=== PATIENT | female | born 1955 | race Caucasian/White ===

== ENCOUNTER 2019-03-23 13:52 | Outpatient (REF) | payer BC, SELFPAY ==
[2019-03-23 19:42] LABS: HGB 14.7 g/dL (12.0-15.5); Mean Corp. HGB Concentration 34.2 g/dL (32.0-36.0); Mean Corpuscular Hemoglobin 33.2 pg (27.0-33.0); Mean Corpuscular Volume 97.1 fL (80-95); Mean Platelet Volume 11.1 fL (8.0-11.0); Platelet Count 111 x1000/uL (130-400); RBC 4.43 m/cumm (4.00-5.20); White Blood Cell Count 3.87 k/cumm (4.4-10.8)
[2019-03-25 10:55] LABS: Lyme Ab w Rflx to Lyme Confirm Negative
[2019-03-26 21:53] LABS: Anaplasma phagocytophilum Negative (Negative); B. miyamotoi PCR Negative (Negative); Babesia divergens/MO-1 Negative (Negative); Babesia duncani Negative (Negative); Babesia microti Negative (Negative); Ehrlichia chaffeensis Negative (Negative); Ehrlichia ewingii/canis Negative (Negative); Ehrlichia muris eauclairensis Negative (Negative)
== END 2019-03-23 14:12 ==
LOC: NCHCN 13:52
PROVIDERS: PCP Nurse Practitioner Adult Health; Visit Provider Family Medicine
DX: W57.XXXA Bitten or stung by nonvenomous insect and other nonvenomous arthropods, initial encounter (principal); T14.8XXA Other injury of unspecified body region, initial encounter
CPT/HCPCS: 85027; 87798; 86618

== ENCOUNTER 2019-04-06 07:41 | Outpatient (CLI) | payer BC, SELFPAY ==
--- NOTE | 2019-04-06 08:57 | DI.MAMMO_ITS ---
SYMPTOMS/DIAGNOSIS: SCREENING, [facility], Z00.00 MAMMOGRAMS: Mammograms were interpreted according to the usual protocol including computer analysis with CAD system, tomosynthesis and C view imaging. Comparison is with the prior examinations. No suspicious masses or microcalcifications are seen. There is no definite evidence of malignancy. IMPRESSION: Negative mammogram. Routine screening is recommended. Category 1, breast density B. SA ASSESSMENT OF FINDINGS: Negative. Category 1. Patient will receive a letter notifying them of these results. BI-RADS category B. There are scattered areas of fibroglandular density.
== END 2019-04-06 08:01 ==
PROVIDERS: PCP Family Medicine; Visit Provider Family Medicine
DX: Z00.00 Encounter for general adult medical examination without abnormal findings (principal); Z12.31 Encounter for screening mammogram for malignant neoplasm of breast
CPT/HCPCS: 77063; 77067

== ENCOUNTER 2019-04-20 12:10 | Outpatient (REF) | payer BC, SELFPAY ==
[2019-04-22 10:47] LABS: Lyme Ab w Rflx to Lyme Confirm Positive
[2019-04-25 16:20] LABS: IgG Band(s) p23 kDa; IgG Immunoblot Negative; IgM Immunoblot Positive; Immunoblot Interpretation SEE COMMENTS
== END 2019-04-20 12:30 ==
LOC: NCHCN 12:10
PROVIDERS: PCP Family Medicine; Visit Provider Family Medicine
DX: A69.20 Lyme disease, unspecified (principal)
CPT/HCPCS: 86617; 86618

== ENCOUNTER 2020-07-17 09:25 | Outpatient (REF) | payer BC, SELFPAY ==
[2020-07-17 18:39] LABS: HCT 42.1 % (36.0-46.0); HGB 14.4 g/dL (11.2-15.7); MCH 33.8 pg (27.0-33.0); MCHC 34.2 % (32.0-36.0); MCV 98.8 fL (80-95); MPV 11.5 fL (8.0-11.0); Platelet Count 147 10^3/uL (130-400); RBC 4.26 10^6/uL (3.93-5.22); RDW 11.9 % (11.7-14.6); RDW-SD 43.2 fL; WBC 3.24 10^3/uL (4.4-10.8)
[2020-07-17 19:07] LABS: ALT 22 U/L (14-59); AST 17 U/L (15-37); Albumin 3.5 g/dL (3.4-5.0); Alkaline Phosphatase 85 U/L (46-116); BUN 14 mg/dL (7-18); Bilirubin, Total 0.5 mg/dL (0.2-1.0); CREATININE 0.96 mg/dL (0.55-1.02); Calcium 8.6 mg/dL (8.5-10.1); Calculated LDL 170 mg/dL (<100); Chloride 106 mmol/L (98-107); Cholesterol 260 mg/dL (<200); Estimated GFR 58.33 (mL/min/1.73m2); Glucose 86 mg/dL (74-106); HDL Cholesterol 73 mg/dL (40-60); Potassium 3.7 mmol/L (3.5-5.1); Sodium 140 mmol/L (136-145); TSH (W/Ref FT4) 2.98 uIU/mL (0.36-3.74); Total Protein 6.9 g/dL (6.4-8.2); Triglyceride 87 mg/dL (<150)
== END 2020-07-17 09:45 ==
LOC: NCHCN 09:25
PROVIDERS: PCP Family Medicine; Visit Provider Family Medicine
DX: E66.9 Obesity, unspecified (principal); E78.5 Hyperlipidemia, unspecified; R60.0 Localized edema; R63.5 Abnormal weight gain
CPT/HCPCS: 80053; 80061; 85027; 84443

== ENCOUNTER 2020-08-07 01:33 | Outpatient (CLI) | payer BC, SELFPAY ==
--- NOTE | 2020-08-07 | DI.US_ITS ---
APPROVED REPORT EXAM: Comprehensive 2D, Doppler, and color-flow Echocardiogram Patient Location: Out-Patient Physical Therapy Manager: Violet Darling RDCS (AE) Indications: Bilateral leg edema Other Information Study Quality: Adequate Conclusion Normal left ventricular wall thickness chamber size and systolic function. Estimated ejection fracti on is 65%. There are no segmental wall motion abnormalities Normal right ventricular size and systolic function Both atria are normal in size There are no structural valvular abnormalities Trace mitral regurgitation Trace to mild tricuspid regurgitation. Estimated right ventricular systolic pressure is normal at 21 mmHg Wall motion Left Ventricle The left ventricle is normal size. The left ventricular systolic function is normal. The left ventric ular ejection fraction is within the normal range. There is normal left ventricular wall thickness. T here is normal LV segmental wall motion. There is no ventricular septal defect visualized. LVEF is 65 %. Right Ventricle The right ventricle is normal size. The right ventricular systolic function is normal. The RVSP is 21 .3 mmHg. Atria The left atrium size is normal. The right atrium size is normal. The interatrial septum is intact wit h no evidence for an atrial septal defect. Aortic Valve The Aortic valve is sclerotic. Aortic valve is trileaflet. There is no aortic valvular stenosis. No a ortic regurgitation is present. Mitral Valve The mitral valve is normal in structure. No evidence of mitral valve stenosis. Trace mitral regurgita tion. Tricuspid Valve The tricuspid valve is normal in structure. There is no tricuspid valve stenosis. Trace to mild tricu spid regurgitation. Pulmonic Valve Pulmonic valve is not well visualized. There is no pulmonic valvular stenosis. There is no pulmonic v alvular regurgitation. Great Vessels The aortic root is normal in size. The ascending aorta is normal in size. Aortic arch is normal in ca liber. IVC is normal in size and collapses >50% with inspiration. Pericardium There is no pericardial effusion. 2D Dimensions IVSD d PLAX 0.92 cm F: 0.6-1.0 LV Vol A2C d MOD 65.8 mL LVPW d PLAX 0.93 cm F: 0.6 - 1.0 LV Vol A4C d MOD 89.9 mL LVID d PLAX 4.11 cm F: 3.8 - 5.2 LA vol/ BSA A2C s A-L 20.2 mL/m2 LVDs 2.85 cm F: 2.2 - 3.5 LA vol/ BSA A4C s A-L 26.9 mL/m2 Ao Root d 2.44 cm F: 2.7 - 3.3 LA Vol/ BSA Biplane s A-L 25.1 mL/m2 RA Area A4C 10.96 cm2 LA Area A4C s MOD 21.31 cm2 RA Vol/ BSA A4C s A-L 8.9 mL/m2 LA Area A2C s MOD 17.17 cm2 Ao Asc Diam d 3.14 cm F: 2.3 - 3.1 LV EF A4C MOD 67.3 % LV EF Teichholz 57.2 % LV EF A2C MOD 64.9 % LVEF ([employer]) 64.90 % F: 54 - 74 LV EF Biplane MOD 64.9 % LV Volume 55.26 mL F: 46 - 106 SV 50.09 mL LV Volume Index 23.92 mL/m2 F: 29 - 61 SV Index 21.64 mL/m2 LV Vol Biplane MOD 77.2 mL FS 29.65 % M-Mode TAPSE 3.32 cm (M/F) >1.7 LV Diastology MV E' medial 0.075 (>0.07 m/s) E/A Ratio 0.9 LV E/e MED 10.75 (<14) MV E Vmax 0.80 (0.4-1.3 m/s) MV E' lateral 0.101 (>0.1 m/s) MV A Vmax 0.85 (0.4-1.3 m/s) LV E/e LAT 7.90 (<14) MV E/A Ratio 0.90 MV E/E' medial 10.79 MV E/E' lateral 7.93 Aortic Valve LVOT Area 2.85 cm2 AoV Area Vmax 2.10 cm2 LVOT Vmax 1.30 m/s AoV Area/ BSA (Vmax) 0.91 cm2/m2 LVOT Mean Elías. 0.84 m/s KRISTAL Mean Elías. 2.03 cm2 LVOT Peak Grad 6.8 mmHg KRISTAL Mean Elías. Index 0.87 cm2/m2 LVOT Mean Grad 3.4 mmHg LVOT VTI 0.294 m LVOT Diam s 1.90 cm AoV Vmax 1.77 m/s Velocity Ratio 0.73 AoV Mean Elías. 1.18 m/s AoV Peak Grad 12.5 mmHg LVOT SV 83.81 mL AoV Mean Grad 6.4 mmHg AoV VTI 0.333 m AoV Area VTI 2.52 cm2 AoV Area/ BSA (VTI) 1.09 cm/m2 Mitral Valve MV DT 222 (160-240 msec) MV PHT 64 msec MV Area PHT 3.41 cm2 Pulmonary Valve PV Vmax 1.43 (0.5-1.5 m/s) RVOT Peak Gr. 3.77 mmHg PV Peak Grad 8.2 mmHg RVOT Mean Gr. 1.75 mmHg PV Mean Grad 4.4 mmHg RVOT VTI 0.203 m PV VTI 0.249 m RVOT Vmax 0.97 m/s Tricuspid Valve TR Peak Grad 18.2 mmHg TR Vmax 2.14 m/s RA Pressure 3.00 mmHg RVSP (TR) 21.3 mmHg
== END 2020-08-07 01:53 ==
PROVIDERS: PCP Family Medicine; Visit Provider Family Medicine
DX: I07.1 Rheumatic tricuspid insufficiency (principal)
CPT/HCPCS: 93306

== ENCOUNTER 2020-08-10 09:40 | Outpatient (REF) | payer BC, SELFPAY ==
[2020-08-10 18:45] LABS: Anion Gap 10.3 mmol/L (3-11); BUN 13 mg/dL (7-18); CO2 23.7 mmol/L (21.0-32.0); CREATININE 0.97 mg/dL (0.55-1.02); Calcium 8.7 mg/dL (8.5-10.1); Chloride 107 mmol/L (98-107); Estimated GFR 57.64 (mL/min/1.73m2); Folate 15.7 ng/mL (8.6-20.0); Glucose 106 mg/dL (74-106); Potassium 3.5 mmol/L (3.5-5.1); Sodium 141 mmol/L (136-145); Vitamin B12 236 pg/mL (193-986)
== END 2020-08-10 10:00 ==
LOC: NCHCN 09:40
PROVIDERS: PCP Family Medicine
DX: D75.89 Other specified diseases of blood and blood-forming organs (principal)
CPT/HCPCS: 80048; 82607; 82746

== ENCOUNTER 2020-08-14 01:01 | Outpatient (CLI) | payer BC, SELFPAY ==
--- NOTE | 2020-08-14 | DI.DEXA_ITS ---
EXAM: XR DEXA BONE DENSITY W/WO STEVIE CLINICAL HISTORY: SCREENING FOR OSTEOPOROSIS IN POSTMENOPAUSAL WOMAN,Z78.0,PREVENT HEAL,Z00.0 TECHNIQUE: [employer] ([place]) Co C densitometer COMPARISON: No exams were available for comparison FINDINGS: Lateral view of thoracic and lumbar spine shows no evidence of compression fractures. Bone mineral density measurements of the lumbar spine correspond to a total T-score of -1.8, in the o steopenic range. The bone mineral density measurements of the left hip correspond to a total T-score of -0.9 and a femoral neck T-score of -1.6, in the osteopenic range. Bone mineral density measureme nts of the left forearm correspond to a T-score of the distal 3rd of -1.5, in the osteopenic range. IMPRESSION: Osteopenia of the lumbar spine, left hip and left forearm.
== END 2020-08-14 01:21 ==
PROVIDERS: PCP Family Medicine; Visit Provider Family Medicine
DX: M85.88 Other specified disorders of bone density and structure, other site (principal); Z00.00 Encounter for general adult medical examination without abnormal findings; Z78.0 Asymptomatic menopausal state
CPT/HCPCS: 77080

== ENCOUNTER 2021-11-01 15:29 | Outpatient (REF) | payer BC, MEDICARE, SELFPAY ==
--- NOTE | 2021-11-01 15:32 | SKI_PTH ---
PATIENT: Christina Ramos LOC: [facility] U#:[id number] AGE/SX: 65/F ROOM: RE11/01/[address]: GRETTA Skelton : 1955 BED: DIS: 11/01/2021 SPEC #: [id number] RECD: 11/01/21 18:21 STATUS: BRIAN REPreston #: [id number] CODIE: 11/01/21 15:[address]: Alphonse Martinez DEPT: Surgical Specimen RECD BY: Shante Coleman ENTERED: 11/01/21 18:21 SP TYPE: RICARDO BRAND DR: Yana Vaughan Tissues: 1 - SKIN BIOPSY(SHAVE/PUNCH) Procedures: SKIN LEVEL 4 Comments: [id number]
== END 2021-11-01 15:30 | disposition home or self-care (01) ==
LOC: LBN 15:29
PROVIDERS: PCP Family Medicine; Visit Provider Physician Assistant
DX: L82.0 Inflamed seborrheic keratosis (principal)
CPT/HCPCS: 88305

== ENCOUNTER 2021-11-25 00:33 | Outpatient (CLI) | payer BC, MEDICARE, SELFPAY ==
--- NOTE | 2021-11-25 | DI.MAMMO_ITS ---
Exam(s) MAMMO SCREENING EXAM: MAMMO SCREENING CLINICAL HISTORY: SCREENING, Z12.31 TECHNIQUE: Mammograms were interpreted according to the usual protocol including computer analysis w [employer] CAD system, tomosynthesis and C-view imaging. COMPARISON: 2019 FINDINGS: The breasts are composed of scattered fibroglandular densities, Breast Density category B. No suspicious masses or suspicious microcalcifications are seen. No skin thickening or abnormal axillary lymph nodes are seen. There has been no significant change from prior exam. IMPRESSION: BI-RADS Category 1, Negative mammogram Yearly screening mammography is recommended. Breast Density - Category B, scattered fibroglandular densities. A negative radiographic report should not delay biopsy if a dominant or clinically suspicious mass is present. Up to ten percent of cancers are not identified on mammography. A negative report may reinforce clinical impression. Adenosis and dense breasts may obscure an underlying neoplasm. False positive reports average 6 to 10%. Patient will receive a letter notifying them of these results.
== END 2021-11-25 00:53 ==
PROVIDERS: PCP Family Medicine; Visit Provider Family Medicine
DX: Z12.31 Encounter for screening mammogram for malignant neoplasm of breast (principal)
CPT/HCPCS: 77063; 77067

== ENCOUNTER 2022-01-06 04:27 | Outpatient (CLI) | payer BC, MEDICARE, SELFPAY ==
[2022-01-06 11:41] LABS: Source Nasal/Nares
[2022-01-06 16:42] LABS: COVID-19 PCR Negative (Negative)
== END 2022-01-06 04:28 | disposition home or self-care (01) ==
LOC: LBO 04:30
PROVIDERS: PCP Family Medicine; Visit Provider Surgery
DX: Z20.822 Contact with and (suspected) exposure to COVID-19 (principal); Z01.818 Encounter for other preprocedural examination
CPT/HCPCS: 87635

== ENCOUNTER 2022-01-08 10:26 | Day surgery (SDC) | payer BC, SELFPAY ==
--- NOTE | 2022-01-08 06:59 | W.COLOREPORT ---
Colonoscopy Report Date of procedure: 01/08/22 Pre-op diagnosis general: Colon Cancer Screening Post-op diagnosis procedure note: other (polyps and mild diverticulosis) Procedure: Colonoscopy with polypectomy Surgeon: Sara Webb Anesthesia Type: General:No Airway Estimated blood loss (mL): 2 Pathology: other (transverse polyp and descending polyp) Complications: None Disposition: same day Indications: The patient is here for Colonoscopy pre-op. Her last screening was in 2007 and was remarkable for tubular adenomatous polyp. She has no family history of colon cancer. She has not had any bowel habit changes. -Discussed colonoscopy bowel prep as well as the procedure. Discussed possible complications of the procedure to include bleeding, pain, perforation, missed small lesion/polyp, sore throat, aspiration and adverse reaction to the medications. Questions were answered to patient?s satisfaction. No guarantees were implied or given.? Prep: Miralax/Dulcolax Procedure Start Time: 13:00 Procedure End Time: 13:19 Retraction Time: 11 minutes Findings: 2 small sessile polyps mild sigmoid diverticulosis Procedure Description: After informed consent was obtained the patient was taken to the procedure room and placed in a left decubitous position. Monitors were applied and a time out was done. The patients name, date of , procedure, allergies to medications and metal in their body was reviewed. The patient was then sedated. Once sedated and comfortable a rectal exam was done. External exam was normal. Internal exam revealed a normal sphincter tone and no palpable masses. The scope was then introduced and retro-flexed. No internal hemorrhoids, polyps or masses were identified on retro-flexion. The scope was then advanced to the cecum without difficulty. The ileocecal vlave and appendiceal orifice were identified. The prep was good. The scope was then slowly retracted over 11 minutes back into the rectum. Polyps were removed with cold forceps in the transverse colon x1 and descending colon x1. There was mild sigmoid diverticulosis noted. The scope was removed and the patient was woken up and taken back to Same day surgery in stable condition. The patient tolerated the procedure well and there were no immediate complications. Follow up: The patient should follow up in 5 years unless they develop changes in bowel habits or other new gastrointestinal complaints.
--- NOTE | 2022-01-08 07:02 | W.PM.DSUDISC ---
Discharge Plan Disposition Patient Disposition: HOME Condition: Good Discharge Details Reason For Visit: Colonoscopy Attending Provider: Sara Webb Primary Care Provider: Yana Vaughan Home Meds and New Rx's Prescriptions: Continued Vitamin B-12 50 mcg tablet 50 mcg PO DAILY 0RF pantoprazole 40 mg tablet,delayed release (DR/EC) 40 mg PO DAILY 0RF calcium carbonate-vitamin D3 [Calcium with Vitamin D] 600 mg(1,500mg) -400 unit tablet 1 tab PO DAILY 0RF dextran 70-hypromellose Drops 1 drp OPHTHALMIC (EYE) QHS 0RF Discharge Instructions Instructions: Diverticulosis (DC), Colorectal Polyps (DC) Additional Instructions: Findings: 2 polyps mild diverticulosis Follow up: 5 years Please call if you develop: fevers >101.5 Nausea or Vomiting Abdominal pain that is not transient Rectal bleeding that is more then a tbsp A hard abdomen and inability to pass gas DAY SURGERY UNIT POST ENDOSCOPY INSTRUCTIONS Instructions for everyone who is given Anesthesia: For your safety, please do the following for the next 24 Hours: a. Do not drive or operate dangerous equipment b. Do not drink alcohol beverages or use any recreational drugs for the first 24 hours or while taking pain medications. The medications in your body may have a reaction that can be dangerous. c. Do not make any important decisions or sign any important papers 1. Generally there are no restrictions on your activity after a day or so has gone by, but you may feel a bit fatigued for a few days. 2. After you arrive home you may have a light meal and return to a normal diet as you can tolerate it without feeling sick to your stomach. 3. After surgery, you may feel pain or discomfort. This should be only transient, but if it persists please contact your doctor. 4. If there are any questions regarding the findings of your procedure, please feel free to contact your doctor. 6. If you are unable to contact your doctor with a problem, contact the hospital at [phone]. 7. Continue all your regular medications unless directed otherwise. I understand the above instructions and have no questions. Signature of Patient or Responsible Adult Escort Date/Time Name of Responsible Adult Escort Signature of Nurse Date/Time Activity:: Activity as Tolerated Diet:: high fiber Discharge Orders Discharge Orders: Discharge Order (Routine); Ordered 01/08/22 Ordered By: Sara Webb
[2022-01-08 10:39] VITALS: BP 149/66; PULSE 72; RESP 16; TEMP 36.3; O2SAT 98
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
[2022-01-08 10:53] VITALS: BMI 44.4
[2022-01-08] MEDS: Lactated Ringers 1,000 ML 80 ML IV (11:14)
--- NOTE | 2022-01-08 13:10 | BOWEL_PTH ---
PATIENT: Christina Ramos LOC: [facility] U#:[id number] AGE/SX: 66/F ROOM: RE01/08/[address]: Sara Webb MD : 1955 BED: DIS: 01/08/2022 SPEC #: [id number] RECD: 01/08/22 18:00 STATUS: BRIAN REPreston #: [id number] CODIE: 01/08/22 13:[address]: Sara Webb DEPT: Surgical Specimen RECD BY: Shante Coleman ENTERED: 01/08/22 18:01 SP TYPE: Bowel OTHR DR: Yana Vaughan Tissues: 1 - BIOPSY BOWEL 2 - BIOPSY BOWEL Procedures: GROSS AND MICRO LEVEL 4 Comments: [id number]
[2022-01-08 13:25] VITALS: BP 106/64; PULSE 52; RESP 18; TEMP 36.1; O2SAT 94
[2022-01-08 13:54] VITALS: BP 120/69; PULSE 61; RESP 16; TEMP 36.5; O2SAT 99
--- NOTE | 2022-01-08 14:20 | W.ANESPOSTOP ---
Postoperative Evaluation Date, Time and Location Date Performed: 01/08/22 Time Performed: 13:27 Patient Location: Day Surgery Unit Vital Signs Most Recent Imported Vital Signs: Most Recent Vital Signs Temp Pulse Resp BP Pulse Ox 36.5 C 61 16 120/69 99 01/08/22 13:54 01/08/22 13:54 01/08/22 13:54 01/08/22 13:54 01/08/22 13:54 Pain Score Most Recent Pain Score: Most Recent Pain Score Pain Level 0 01/08/22 13:54 Assessment Mental Status: Awake (Alert & Oriented to Patient Baseline) Airway and Respiratory Function: Patent airway with normal (patient baseline) respiratory exam Cardiovascular Function: Hemodynamically Stable Hydration Status: Adequately Hydrated Nausea & Vomiting: No Nausea or Vomiting Pain: Pt. Denies Any Pain Peripheral Nerve Block: Patient did not receive a nerve block
== END 2022-01-08 14:31 | disposition home or self-care (01) ==
PROVIDERS: PCP Family Medicine; Visit Provider Surgery
PROC: 0DJD8ZZ Inspection of Lower Intestinal Tract, Via Natural or Artificial Opening Endoscopic (ICD-10-PCS; CPT 45378; principal; 2022-01-08 13:15)
DX: Z12.11 Encounter for screening for malignant neoplasm of colon (principal); K57.30 Diverticulosis of large intestine without perforation or abscess without bleeding; K63.5 Polyp of colon
CPT/HCPCS: 45380; 88305

== ENCOUNTER 2022-04-15 15:00 | Outpatient (REF) | payer BC, SELFPAY ==
[2022-04-15 16:35] LABS: HCT 41.4 % (36.0-46.0); HGB 14.4 g/dL (11.2-15.7); MCH 33.3 pg (27.0-33.0); MCHC 34.8 % (32.0-36.0); MCV 96 fL (80-95); MPV 11.4 fL (8.0-11.0); Platelet Count 136 10^3/uL (130-400); RBC 4.33 10^6/uL (3.93-5.22); RDW 11.9 % (11.7-14.6); RDW-SD 41.1 fL; WBC 3.46 10^3/uL (4.4-10.8)
[2022-04-15 17:41] LABS: Anion Gap 10.8 mmol/L (3-11); BUN 17 mg/dL (7-18); CO2 23.2 mmol/L (21.0-32.0); CREATININE 1.1 mg/dL (0.55-1.02); Calcium 8.9 mg/dL (8.5-10.1); Chloride 107 mmol/L (98-107); Estimated GFR 49.54 (mL/min/1.73m2); Glucose 91 mg/dL (74-106); Sodium 141 mmol/L (136-145); Vitamin B12 558 pg/mL (193-986)
== END 2022-04-15 15:01 | disposition home or self-care (01) ==
LOC: NCHCN 15:00
PROVIDERS: PCP Family Medicine; Visit Provider Family Medicine
DX: E53.8 Deficiency of other specified B group vitamins (principal); D75.89 Other specified diseases of blood and blood-forming organs; R60.0 Localized edema
CPT/HCPCS: 80048; 85027; 82607

== ENCOUNTER 2022-10-20 18:45 | Outpatient (REF) | payer BC, SELFPAY ==
[2022-10-20 18:39] LABS: Anion Gap 9.4 mmol/L (3-11); BUN 12 mg/dL (7-18); CO2 23.6 mmol/L (21.0-32.0); CREATININE 0.9 mg/dL (0.55-1.02); Chloride 106 mmol/L (98-107); Estimated GFR 70.07 (mL/min/1.73m2); Glucose 94 mg/dL (74-106); Potassium 3.8 mmol/L (3.5-5.1); Sodium 139 mmol/L (136-145)
[2022-10-22 10:29] LABS: Hepatitis C Ab w Rflx HCV PCR Negative (Negative)
== END 2022-10-20 18:46 | disposition home or self-care (01) ==
LOC: NCHCN 18:45
PROVIDERS: PCP Family Medicine; Visit Provider Family Medicine
DX: N18.31 Chronic kidney disease, stage 3a (principal); Z11.59 Encounter for screening for other viral diseases
CPT/HCPCS: 80048; 86803

== ENCOUNTER 2023-01-24 11:09 | Outpatient (CLI) | payer BC, SELFPAY ==
--- NOTE | 2023-01-24 | DI.RAD_ITS ---
Exam(s) XR RIBS RT W PA LAT CHEST CLINICAL HISTORY: Rib pain/Right side. COMPARISON: CR CHEST 2 VIEWS PA,LAT from 06/26/2010 TECHNIQUE:: PA and lateral views of the chest and four views of the right ribs were performed. FINDINGS: LUNGS: Patchy infiltrate at the right diaphragm. tiny effusion. No pneumothorax. HEART: Normal. MEDIASTINUM: Normal. BONES: No displaced rib fracture is seen. No bony destructive lesion is seen. OTHER FINDINGS: None. IMPRESSION: 1. Unremarkable radiographic appearance of the right ribs. 2. Tiny right pleural effusion and right basilar infiltrate.
--- NOTE | 2023-01-24 11:56 | DI.VRAD_ITS ---
PROCEDURE INFORMATION: Exam: XR Right Ribs Exam date and time: 01/24/2023 11:19 AM Age: 67 years old Clinical indication: Other: Right lower anterior rib pain; Other: Lower rib pain.No history of trauma or recent surgery is provided. TECHNIQUE: Imaging protocol: Radiologic exam of the right ribs. Views: 2 views. COMPARISON: No relevant prior studies available. FINDINGS: Bones/joints: Osseous alignment is maintained.No displaced fracture or dislocation is appreciated. Soft tissues: No radiopaque foreign body or subcutaneous emphysema is appreciated. IMPRESSION: Osseous alignment is maintained.No fracture or dislocation is appreciated. PROCEDURE INFORMATION: Exam: XR Chest Exam date and time: 01/24/2023 11:19 AM Age: 67 years old Clinical indication: Other: Right lower anterior rib pain; Other: Lower rib pain.No history of trauma or recent surgery is provided. TECHNIQUE: Imaging protocol: Radiologic exam of the chest. 5image(s) are provided. Views: 2 views. COMPARISON: No relevant prior studies available. FINDINGS: Lungs: No lobar consolidation is appreciated. There is however some patchy opacification of the right lung base. Pleural spaces: There is some costophrenic angle blunting on the right. No pneumothorax is appreciated. Heart/Mediastinum: The cardiomediastinal silhouette is upper normal in size.This can be seen with central averaging as well as kylie enlargement.No cardiac decompensation is appreciated. Diaphragm: The hemidiaphragms are otherwise relatively symmetric. Bones/joints: Osseous alignment is maintained.No displaced fracture or dislocation is appreciated. Soft tissues: No radiopaque foreign body or subcutaneous emphysema is appreciated. There is some skin fold averaging. Other findings: There is some mild chronic air trapping appearance overall demonstrated. IMPRESSION: There is some patchy opacification indicative of inflammation or scarring at the right lung base along with some pleural fluid blunting the costophrenic angle. No lobar type consolidation or cardiac decompensation is appreciated. Dictated and Authenticated by: Jacques Schroeder MD. Ordering:YANET López MD
== END 2023-01-24 11:29 ==
PROVIDERS: PCP Family Medicine; Visit Provider Physician Assistant Medical
DX: R91.8 Other nonspecific abnormal finding of lung field (principal); R10.9 Unspecified abdominal pain
CPT/HCPCS: 71046; 71100

== ENCOUNTER 2023-01-26 16:23 | Outpatient (REF) | payer BC, SELFPAY ==
[2023-01-28 13:30] LABS: HSV 1 DNA Result Negative (Negative); HSV 2 DNA Result Negative (Negative); Varicella Zoster DNA Result Negative ((See Note))
== END 2023-01-26 16:24 | disposition home or self-care (01) ==
LOC: NCHCN 16:23
PROVIDERS: PCP Family Medicine; Visit Provider Family Medicine
DX: R21 Rash and other nonspecific skin eruption (principal); Z11.59 Encounter for screening for other viral diseases
CPT/HCPCS: 87529; 87798

== ENCOUNTER 2024-05-02 03:54 | Outpatient (CLI) | payer BC, SELFPAY ==
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
--- OUTSIDE RECORDS SUMMARY | 2024-05-02 03:56 | XMS_ITS | Encounter Summary ---
Author Organization Count Includes [facility] Address [facility] [place] [address] Care Team Providers Care Equities Trader Name Role Phone Tish Malcolm APRN Primary Care Provider +1- [phone] Encounter Details Date Type Department Care Team (Latest Contact Info) Description 11/06/2010 8:52 AM EST - 11/08/2010 11:22 AM [facility] Hospital Encounter [address] [place] [address] Tor Pina MD [facility] [place] [place] [address] Discharge Disposition: Home Social History Tobacco Use Types Packs/Day Years Used Date Smoking Tobacco: Never Assessed Sex and Gender Information Value Date Recorded Sex Assigned at Not on file Gender Identity Not on file Sexual Orientation Not on file documented as of this encounter Last Filed Vital Signs Vital Sign Reading Time Taken Comments Blood Pressure - - Pulse - - Temperature - - Respiratory Rate - - Oxygen Saturation - - Inhaled Oxygen Concentration - - Weight 103.4 kg (228 lb) 07/09/2010 1:31 PM EDT Height 170.2 cm (5' 7) 07/09/2010 1:31 PM EDT Body Mass Index 35.71 07/09/2010 1:31 PM EDT documented in this encounter Plan of Treatment Not on file documented as of this encounter Visit Diagnoses Not on filedocumented in this encounter Active and Recently Administered Medications Care Teams Equities Trader Relationship Specialty Start Date End Date Tish Malcolm APRN PCP - General 08/06/10 05/11/11 documented as of this encounter
--- OUTSIDE RECORDS SUMMARY | 2024-05-02 03:56 | XMS_ITS | Encounter Summary ---
Author Organization [facility] [place] [address] Care Team Providers Care Metal Polisher And Buffer Apprentice Name Role Phone MalcolmTish griffith Timothy CASTELLON Primary Care Provider +1- [phone] Reason for Visit * Reason Comments Follow Up Surgery right eye Encounter Details Date Type Department Care Team (Late st Contact Info) Description 08/01/2011 9:45 AM EST [place] [address] Tor Pina MD [facility] [place] [address] Facial trauma (Primary Dx) Discharge Disposition: Home Social History Tobacco Use [...] - Inhaled Oxygen Concentration - - Weight 84.8 kg (187 lb) 08/01/2011 9:37 AM EST Height - - Body Mass Index 28.43 07/08/2011 3:10 PM EDT documented in this encounter Patient Instructions * Patient Instructions* Milly Cole CMA - 08/01/2011 9:53 AM EST Welcome to Little1, your secure online access to your electronic medical record at [facility]. Using Little1 you will be able to send messages to your providers, view your test results, renew prescriptions, schedule appointments, and much more. Follow these instructions to enter your personal [facility] account for the first time: 1. Start your internet browser. Go to [email or web address] and click on the Little1 link. 2. Click SIGN UP NOW to go to the NEW MEMBER SIGN UP page. 3. Enter your Little1 Access Code exactly as it appears below. (You will not need this access code after you have completed the sign-up process.) ?? Your [facility] Access Code: [email or web address] ?? Expires: 08/22/11 02:24 PM ?? IMPORTANT: This Access Code will on the above mentioned date. If you do not sign up before this date, you will need to request a new Access Code number. 4. Enter your Date of (mm/dd/yyyy) and zip code click SUBMIT to go to the next page. 5. Create a [facility] identification (ID). This will be your Little1 login ID and cannot be changed, so think of one that is secure and easy to remember. 6. Create a password which you can change at any time. Your password must contain six (6) letters and two (2) numbers. 7. Enter your Password Reset Question and Answer. This will be used if you forget your password. 8. Enter your e-mail address. This is used to let you know when new information is available in Little1. 9. Click SIGN UP to complete the process. You can now view your electronic medical record. If you have any questions about Little1 or your Access Code, please call for [place], for [place] or for [place]. If you need technical support, please e-mail [email or web address]. Remember, myD-H is NOT for urgent needs! Always dial 911 for medical emergencies. documented in this encounter Progress Notes * Tor Pina MD - 08/01/2011 10:03 AM EST 30 d s/p right periorbital procedures Doing well in general Still has loss of supratarsal crease on right upper lid and significant residual edema Is doing some lower lid massage and I have encouraged her to continue with this Will try some lid taping at night to try and mitigate some dry eye symptoms Does have some persistent lower lid retraction and she might benefit from an inner lamella graft such as palatal mucosa in the future I expect that the upper and lower lids will look better in the coming 1-2 months and we will look at things again in September 2011. She also mentioned that she is having quite a bit of tearing and she might require an Ophthalmologyconsultation if this persists. Photos obtained with informed signed consent. More than 50% of the time of this visit was spent in counseling and coordinating care (25 mins) documented in this encounter Miscellaneous Notes * Miscellaneous - Nita Lopez - 08/11/2011 2:45 PM EST documented in this encounter Plan of Treatment Not on file documented as of this encounter Visit Diagnoses Diagnosis Facial trauma- Primary Injury of face and neck documented in this encounter Care Teams Metal Polisher And Buffer Apprentice Relationship Specialty Start Date End Date Tish Malcolm APRN PCP - General 07/08/11 11/09/16 documented as of this encounter
--- OUTSIDE RECORDS SUMMARY | 2024-05-02 03:56 | XMS_ITS | Encounter Summary ---
Author Organization [facility] Address [facility] [place] [address] Care Team Providers Care Instrument Room Technician Name Role Phone Tish Malcolm RAVINDER Primary Care Provider [phone]- [phone] Reason for Visit * Reason Comments Follow-up ct scan Advice Only right eye lid Encounter Details Date Type Department Care Team (Late st Contact Info) Description 04/04/2011 8:00 AM EDT [place] [id number] Tor Pina MD [facility] [place] [address] Facial trauma (Primary Dx) Discharge Disposition: Home [...] Sign Reading Time Taken Comments Blood Pressure 118/54 04/04/2011 7:59 AM EDT Pulse - - Temperature - - Respiratory Rate - - Oxygen Saturation - - Inhaled Oxygen Concentration - - Weight 87.1 kg (192 lb) 04/04/2011 7:59 AM EDT Height 172.7 cm (5' 8) 04/04/2011 7:59 AM EDT Body Mass Index 29.19 04/04/2011 7:59 AM EDT documented in this encounter Progress Notes * Tor Pina MD - 04/04/2011 8:33 AM EDT Ms. Ramos for reevaluation today. She is now 5 months status post refracture and reposition of the right zygomaticomaxillary complex and right nasal maxillary complex. She's doing very well. She is extremely pleased with the improved position of her right globe. She is much more comfortable exposing her face in public now without the use of large sunglasses. However she still has some significantsoft tissue deformity that will require further reconstruction. She also has some palpable hardwareand orbital rim irregularity that is bothersome to her. In particular the right zygomaticofrontal titanium plate and the right inferior orbital rim titanium plate both are palpable and uncomfortable for her. In looking at her she's in no distress and her overall health appears to be excellent. Her right lower lid is markedly displaced in a caudad direction with both the lateral and medial canthal ligament region malpositioned. In addition her right upper lid appears to be ptotic in the nasal half so that the nasal half of her upper lid obscures her cornea. Her pupil is veiled when looking in the AP direction. I have recommended the following interventions: 1. Right upper lid levator advancement to elevate the nasal half of the right upper lid 2. Medial canthoplasty via old scar in canthal region 3. Lateral canthoplasty 4. Possible removal of rim plate and bony contouring of inferior orbital rim 5. Left lower lid skin-only bleph for symmetry 6. Possible removal of right ZF plate Photographs were obtained today with informed signed consent. I reviewed the risks of the above listed procedures including bleeding, scarring, infection, healing problems, corneal abrasion, persistent deformity, lagophthalmos, and need for further surgery in the future. More than 50% of the time of this visit was spent in counseling and coordinating care (25 mins) documented in this encounter Miscellaneous Notes * Miscellaneous - Nita Lopez - 04/10/2011 11:24 AM EDT documented in this encounter Plan of Treatment Not on file documented as of this encounter Visit Diagnoses Diagnosis Facial trauma- Primary Injury of face and neck documented in this encounter Care Teams Instrument Room Technician Relationship Specialty Start Date End Date Tish Malcolm APRN PCP - General 08/06/10 05/11/11 documented as of this encounter
--- OUTSIDE RECORDS SUMMARY | 2024-05-02 03:56 | XMS_ITS | Encounter Summary ---
Author Organization [facility] [place] [address] Care Team Providers Care Overlock Operator Name Role Phone Unknown Primary Care Provider Unavailabl e Encounter Details Date Type Department Care Team (Late st Contact Info) Description 07/02/2011 12:29 PM EDT Anesthesia [place] [address] Jesus Patino MD [facility] [place] [address] Anesthesia Record Procedure Summary Procedure Name Responsible Anesthesiologist Anesthesia Start Time Anesthesia Stop Time CANTHOPLASTY (WRVU 5.99) (Right: Eye) Jesus Patino MD 07/02/11 1229 07/02/11 1537 Events Date Time Event Comment 07/02/2011 1157 1229 Start 1537 Stop Meds * Agents No agents on file. * Blood No blood administrations on file. Lines, Drains, and Airways Type Details Placement Removal (RETIRED) Peripheral IV Line - Single Lumen 07/02/11; 1224; 07/02/11; 1707 07/02/11 1224 by Sweetie Vyas RN 07/02/11 1707 by Kaleigh Drew RN Incision 07/02/11; 1307; eyebrow; 05/12/22 (LDA cleanup utility RA#[id number]); 1715 (LDA cleanup utility RA#[id number]) 07/02/11 1307 by Tish Hair RN 05/12/22 1715 by Jefferson Goodman documented in this encounter Social History Tobacco [...] of this encounter OR Notes * Anesthesia Postprocedure Evaluation - Jesus Patino MD - 07/02/2011 3:43 PM EDT Patient: Christina Ramos Procedure(s) Performed: CANTHOPLASTY - 5-7 day f/u TPS Drill and universal screwdriver set 3 hrs; REMOVAL OF IMPLANT, DEEP, SKULL; BLEPHAROPTOSIS REPAIR, LEVATOR RESECTION OR ADVANCEMENT, EXTERNAL; BLEPHAROPLASTY, LOWER EYELID; ORBITAL IMPLANT, INSERTION Patient location: PACU Post-op pain: Adequate analgesia Post-op nausea: no nausea or vomiting Last Vitals: Filed Vitals: 07/02/11 1534 BP: Pulse: 90 Temp: 36.3 ??C (97.3 ??F) Resp: Post-op cardiovascular and respiratory status: is stable Level of consciousness: awake, alert and oriented Complications: no apparent complications, tolerated the procedure well and no evidence of recall Fluid Status: normal * Anesthesia Preprocedure Evaluation - Jesus Patino MD - 07/02/2011 11:56 AM EDT Anesthesia Evaluation Patient summary reviewed and Nursing notes reviewed No hx of anesthetic complications Airway Mallampati: II TM distance: <3 FB Neck ROM: full Dental Pulmonary (-) COPD and asthma Cardiovascular Exercise tolerance: good (-) hypertension, past MT, angina and SANON Neuro/Psych (-) seizures, TIA and CVA GI/Hepatic/Renal (-) GERD, hepatitis, liver disease and renal disease Endo/Other (-) Type I DM, Type II DM, hypothyroidism, hyperthyroidism and clotting problem Abdominal Anesthesia Plan ASA 2 General with intravenous induction Anesthetic plan and risks discussed with patient. Use of blood products discussed with and consented by. Plan discussed with WEATHER FORECASTER. documented in this encounter Miscellaneous Notes * Addendum Note - Donna aJckson - 07/03/2011 12:11 PM EDT Addendum created 07/03/11 1211 by Donna Jackson Modules edited:Anesthesia Events, Anesthesia Responsible Staff documented in this encounter Plan of Treatment Not on file documented as of this encounter Visit Diagnoses Not on filedocumented in this encounter Care Teams Overlock Operator Relationship Specialty Start Date End Date Unknown None PCP - General 05/12/11 07/07/11 documented as of this encounter
--- OUTSIDE RECORDS SUMMARY | 2024-05-02 03:56 | XMS_ITS | Clinical Summary ---
Author Organization [facility] Address [address] [place] [address] Care Team Providers Care Director Of Casino Marketing Name Role Phone Yana Vaughan MD Primary Care Provider [phone] Social History Tobacco Use Types Packs/Day Years Used Date Smoking Tobacco: Never Assessed Sex and Gender Information Value Date Recorded Sex Assigned at Not on file Gender Identity Not on file Sexual Orientation Not on file Plan of Treatment Health Maintenance Due Date Last Done Comments RSV Immunization ( o r 60+ Years) (1 - 1-dose 60+ series) 2014 Fall Risk Screening 12/16/2019 COVID-19 Vaccine (2022-24 season) 2023 Hepatitis C Screen Completed 10/20/2022 Procedures Procedure Name Priority Date/Time Associated Diagnosis Comments HEPATITIS C AB W REFLEX TO HCV RNA BY PCR Routine 10/20/2022 14:00 EST from Last 3 Months or Most Recently Relevant to Health Maintenance Results * HEPATITIS C AB W REFLEX TO HCV RNA BY PCR (10/20/2022 14:00 EST) Hep C Antibody Negative Negative 10/22/2022 10:23 EST [facility] Blood VENOUS BLOOD / Unknown 10/20/2022 14:00 EST 10/21/2022 17:20 EST Provider Outr Resulting Lab CHEMISTRY & BLOOD GAS ORDERABLES [facility] [address] [place] [address] from Last 3 Months or Most Recently Relevant to Health Maintenance Care Teams Director Of Casino Marketing Relationship Specialty Start Date End Date Yana Vaughan MD [address] [phone] PCP - General 12/13/21
--- OUTSIDE RECORDS SUMMARY | 2024-05-02 03:56 | XMS_ITS | Encounter Summary ---
Author Organization [facility] [address] Care Team Providers Care Associate Dean Of Women Name Role Phone Tish Malcolm APRN Primary Care Provider [phone] Encounter Details Date Type Department Care Team (Late st Contact Info) Description 09/02/2010 11:45 AM EST [place] [address] Tor Pina MD [facility] [place] [address] Discharge Disposition: Home Social History Tobacco Use Types Packs/Day Years Used Date Smoking Tobacco: Never Assessed Sex and Gender Information Value Date Recorded Sex Assigned at Not on file Gender Identity Not on file Sexual Orientation Not on file documented as of this encounter Plan of Treatment Not on file documented as of this encounter Visit Diagnoses Not on filedocumented in this encounter Care Teams Associate Dean Of Women Relationship Specialty Start Date End Date Tish Malcolm APRN PCP - General 08/06/10 05/11/11 documented as of this encounter
--- OUTSIDE RECORDS SUMMARY | 2024-05-02 03:56 | XMS_ITS | Encounter Summary ---
Author Organization [facility] Address [facility] [place] [address] Care Team Providers Care Enologist Name Role Phone Tish Malcolm RAVINDER Primary Care Provider [phone]- [phone] Reason for Visit * Reason Comments Follow-up Facial reconstructio n Encounter Details Date Type Department Care Team (Late st Contact Info) Description 01/10/2011 9:00 AM EDT [place] [address] Tor Pina MD [facility] [place] [address] Facial trauma (Primary Dx) Discharge Disposition: Home Social History Tobacco Use Types Packs/Day Years Used Date Smoking Tobacco: Never Assessed Sex and Gender Information Value Date Recorded Sex Assigned at Not on file Gender Identity Not on file Sexual Orientation Not on file documented as of this encounter Progress Notes * Milly Cole CMA - 01/10/2011 9:42 AM EDT .pl Pre-op Teaching for Surgery Surgery: Revision of right eye Written and verbal pre-operative instructions given and reviewed with patient. Patient was advised to discontinue use of NSAIDS and aspirin products 14 days prior to surgery unless otherwise advised by patient's PCP/Portable Pinch Riveter for cardiac symptoms, to perform the pre-op scrub, and coordinate ride home following surgery. Discussed and answered all questions including post opcourse and activity limitations. Photos taken : yes Patient was told to call the clinic for any questions or concerns prior to surgery. * Tor Pina MD - 01/10/2011 9:37 AM EDT Follow-up to recent right facial reconstruction including re-fracture and re- position of right ZMC and nasomaxillary fragments. She is coming along nicely with most of the edema resolved She pointed out that she is very pleased with the improved appearance of her face and is now more comfortable having it seen in public She still has some pressing issues, as expected, that will need some further intervention. Banks examfindings today include: Right lower lid is still markedly displaced in caudad position Right globe is in dramatically better position It is unclear to me whether there is some right upper lid ptosis or whether a combination of some residual enophthalmos and esotropia is leaving the globe nasally displaced and with the pupil therefore situated nasally and out of line with the highest peak of the lid contour The right lower lid is quite adherent to the inferior rim We will need to do a release of cicatrix and likely will need palatal mucosal graft at the time of the lateral canthoplasty Will consider removal a fatty pocket from the upper lid medial compartment We might need to do a contralateral lower lid skin-only bleph to match the reconstructed right lower lid She pointed out to me some bony irregularity along the right lateral orbital rim that can be re-contoured She also pointed out to me that her upper buccal sulcus scar is firm and uncomfortable - I suggested that I might release her upper lip frenulum and can inject some steroid to the upper buccal sulcusscar as well. Recommend: 1. CT face to reassess facial bone position 2. Assessment by frame trimmer Ms. Cruz to assess globe position and mobility 3. We will plan on performing a correction of ectropion (release of right lower lid cicatrix with placement of buccal mucosal spacer graft) 4. Wait on any upper lid intervention until we receive feedback from orthoptic assessment 5. Right lateral canthoplasty 6. Steroid to buccal sulcus scar documented in this encounter Miscellaneous Notes * Miscellaneous - John, Cryptanalyst - 01/30/2011 5:29 AM EDT documented in this encounter Plan of Treatment Not on file documented as of this encounter Visit Diagnoses Diagnosis Facial trauma- Primary Injury of face and neck documented in this encounter Care Teams Enologist Relationship Specialty Start Date End Date Tish Malcolm APRN PCP - General 08/06/10 05/11/11 documented as of this encounter
--- OUTSIDE RECORDS SUMMARY | 2024-05-02 03:56 | XMS_ITS | Encounter Summary ---
Author Organization [facility] [place] [address] Care Team Providers Care Biology Laboratory Assistant Name Role Phone Tish Malcolm APRN Primary Care Provider [phone]- [phone] Encounter Details Date Type Department Care Team (Late st Contact Info) Description 11/12/2010 10:45 AM EST Office [place] [address] Tor Pina MD [facility] [place] [address] Discharge Disposition: Home Social History Tobacco Use [...] on filedocumented in this encounter Care Teams Biology Laboratory Assistant Relationship Specialty Start Date End Date Tish Malcolm APRN PCP - General 08/06/10 05/11/11 documented as of this encounter
--- OUTSIDE RECORDS SUMMARY | 2024-05-02 03:56 | XMS_ITS | Encounter Summary ---
Author Organization [facility] Address [address] [place] [address] Care Team Providers Care Foreign Exchange Student Coordinator Name Role Phone Yana Vaughan MD Primary Care Provider [phone] Encounter Details Date Type Department Care Team (Late st Contact Info) Description 01/08/2022 Lab Requisition [facility] Pathology & Laboratory Medicine - [address] [address] Mar Webb MD [address] [place] [address] Encounter for other general examination Social History Tobacco Use Types Packs/Day Years Used Date Smoking Tobacco: Never Assessed Sex and Gender Information Value Date Recorded Sex Assigned at Not on file Gender Identity Not on file Sexual Orientation Not on file documented as of this encounter Plan of Treatment Not on file documented as of this encounter Procedures Procedure Name Priority Date/Time Associated Diagnosis Comments SURGICAL PATHOLOGY Today 01/08/2022 13 :10 EDT Encounter for other general examination documented in this encounter Results * SURGICAL PATHOLOGY (01/08/2022 13:10 EDT) Note to Patient The following pathology results have been interpreted by your pathologist and may be available to you before your health provider has had the opportunity to review them. Please allow time for your provider to receive these results and explore management options, if applicable. 01/13/2022 10:47 EDT [facility] Final Diagnosis A. COLON, TRANSVERSE, POLYP, BIOPSY: - Tubular adenoma. B. COLON, DESCENDING, POLYP, BIOPSY: - Tubular adenoma. 01/13/2022 10:47 EDT [facility] Attestation By the signature below, the attending physician certifies that they have 1) personally conducted a gross and/or microscopic examination of the described specimen(s), and/or personally interpreted the results of laboratory testing of the described specimen(s), and 2) personally rendered or confirmed the above diagnosis. 01/13/2022 10:47 EDT [facility] at 1047 Clinical History Hx of polyps 01/13/2022 10:47 EDT [facility] Gross Description A. Received in formalin labelled with proper patient identification (initials M, S) and transverse colon polyp is a navarro-villalobos tissue, 0.4 x 0.2 x 0.2 cm. Entirely submitted in A1. B. Received in formalin labelled with proper patient identification (initials M, S) and descending colon polyp is a navarro nodular tissue, 0.4 x 0.3 x 0.2 cm. Entirely submitted in B1. GRETTA VILLEGAS(ASCP) 01/09/2022 9:20 01/13/2022 10:47 EDT [facility] Performing Lab [facility] 01/13/2022 10:47 T [facility] Scanned Images 01/13/2022 10:47 T [facility] Tissue DESCENDING COLON STRUCTURE / Unknown 01/08/2022 13:10 EDT 01/08/2022 23:12 EDT Tissue specimen (specimen) DESCENDING COLON STRUCTURE / Unknown 01/08/2022 13:10 EDT 01/08/2022 23:12 EDT Mar Webb MD PATHOLOGY ORDERA DORA [facility] [address] [place] [address] documented in this encounter Visit Diagnoses Diagnosis Encounter for other general examination documented in this encounter Care Teams Foreign Exchange Student Coordinator Relationship Specialty Start Date End Date Yana Vaughan MD [address] [place] [id number] PCP - General 12/13/21 documented as of this encounter
--- OUTSIDE RECORDS SUMMARY | 2024-05-02 03:56 | XMS_ITS | Encounter Summary ---
Author Organization [facility] [place] [address] Care Team Providers Care Veterinarian Name Role Phone Tish Malcolm APRN Primary Care Provider +1- [phone] Encounter Details Date Type Department Care Team (Late st Contact Info) Description 11/22/2010 10:15 AM EST Follow-[place] [address] Tor Pina MD [facility] [place] [address] Discharge Disposition: Home Social History Tobacco Use [...] on filedocumented in this encounter Care Teams Veterinarian Relationship Specialty Start Date End Date Tish Malcolm APRN PCP - General 08/06/10 05/11/11 documented as of this encounter
--- OUTSIDE RECORDS SUMMARY | 2024-05-02 03:56 | XMS_ITS | Encounter Summary ---
[place] [address] Care Team Providers Care Middleware Solutions Architect Name Role Phone Tish Malcolm APRN Primary Care Provider +1- [phone] Reason for Referral * Consultation (Routine) - Complete - Patient Seen (External Appt Consult Notes Rcv'd) Specialty Diagnoses / Procedures Referred By Contac t Referred To Contact Ophthalmology Diagnoses Facial fracture Tor Pina MD [facility] [place] [address] [facility] [address] [place] [phone] Referral ID Status Reason Start Date Expiration Date Visits Requested Visits Authorized [id number] Complete - Patient Seen (External Appt Consult Notes Rcv'd) Consult Only 01/23/2011 07/22/2011 1 1 Encounter Details Date Type Department Care Team (Late st Contact Info) Description 01/23/2011 Orders [place] [address] Tor Pina MD [facility] [place] [address] Facial fracture (Primary Dx) Social History Tobacco Use Types Packs/Day Years Used Date Smoking Tobacco: Never Assessed Sex and Gender Information Value Date Recorded Sex Assigned at Not on file Gender Identity Not on file Sexual Orientation Not on file documented as of this encounter Plan of Treatment Scheduled Referrals Name Type Priority Associated Diagnoses Order Schedule REFERRAL TO OPHTHALMOLOGY Outpatient Referral Routine Facial fracture Ordered: 01/23/2011 documented as of this encounter Visit Diagnoses Diagnosis Facial fracture- Primary Other facial bones, closed fracture documented in this encounter Care Teams Middleware Solutions Architect Relationship Specialty Start Date End Date Tish Malcolm APRN PCP - General 08/06/10 05/11/11 documented as of this encounter
--- OUTSIDE RECORDS SUMMARY | 2024-05-02 03:56 | XMS_ITS | Encounter Summary ---
[place] [address] Care Team Providers Care Tumbler Operator Name Role Phone Unknown Primary Care Provider Unavailabl e Encounter Details Date Type Department Care Team (Late st Contact Info) Description 03/25/2011 Abstract [place] [address] Jahaira Alonso RN Deformity Social History Tobacco Use Types Packs/Day Years Used Date Smoking Tobacco: Never Assessed Sex and Gender Information Value Date Recorded Sex Assigned at Not on file Gender Identity Not on file Sexual Orientation Not on file documented as of this encounter Plan of Treatment Not on file documented as of this encounter Visit Diagnoses Diagnosis Deformity Acquired musculoskeletal deformity of unspecified site documented in this encounter Care Teams Tumbler Operator Relationship Specialty Start Date End Date Unknown None PCP - General 05/12/11 07/07/11 documented as of this encounter
--- OUTSIDE RECORDS SUMMARY | 2024-05-02 03:56 | XMS_ITS | Encounter Summary ---
Author Organization [facility] Address [facility] [place] [address] Care Team Providers Care Security Intelligence Analyst Name Role Phone Tish Malcolm RAVINDER Primary Care Provider +1- [phone] Reason for Visit * Reason Comments Follow-up right eye Encounter Details Date Type Department Care Team (Late st Contact Info) Description 10/24/2011 10:45 AM EST [place] [address] Tor Pina MD [facility] [place] [address] Facial trauma (Primary Dx) Discharge Disposition: Home [...] - Inhaled Oxygen Concentration - - Weight 86.2 kg (190 lb) 10/24/2011 10:49 AM EST Height 172.7 cm (5' 8) 10/24/2011 10:49 AM EST Body Mass Index 28.89 10/24/2011 10:49 AM EST documented in this encounter Patient Instructions * Patient Instructions* Tor Pina MD - 10/24/2011 10:47 AM EST Welcome to [facility]-, your secure online access to your electronic medical record at [facility]. Using [employer] you will be able to send messages to your providers, view your test results, renew prescriptions, schedule appointments, and much more. Follow these instructions to enter your personal [employer] account for the first time: 1. Start your internet browser. Go to [email or web address] and click on the [employer] link. 2. Click SIGN UP NOW to go to the NEW MEMBER SIGN UP page. 3. Enter your [employer] Access Code exactly as it appears below. (You will not need this access code after you have completed the sign-up process.) ?? Your [employer] Access Code: [email or web address] ?? Expires: 12/08/11 10:47 AM ?? IMPORTANT: This Access Code will on the above mentioned date. If you do not sign up before this date, you will need to request a new Access Code number. 4. Enter your Date of (mm/dd/yyyy) and zip code click SUBMIT to go to the next page. 5. Create a [employer] identification (ID). This will be your [employer] login ID and cannot be changed, so [...] know when new information is available in [employer]. 9. Click SIGN UP to complete the process. You can now view your electronic medical record. If you have any questions about [employer] or your Access Code, please call for [place], for [place] or for [place]. If you need technical support, please e-mail [email or web address]. Remember, [employer] is NOT for urgent needs! Always dial 911 for medical emergencies. documented in this encounter Progress Notes * Tor Pina MD - 10/24/2011 10:47 AM EST 4 months s/p: (Right MEDIAL and LATERAL CANTHOPLASTY) REMOVAL OF IMPLANT, DEEP, SKULL/FACIAL BONES BLEPHAROPTOSIS REPAIR, LEVATOR RESECTION OR ADVANCEMENT, EXTERNAL ORBITAL IMPLANT, INSERTION (TREATMENT OF ORBITAL FLOOR DEFECT) Brows are asymmetrical, lower on right side, but ptotic bilaterally Significant brow ptosis and dermatochalasis bilat but worse on right Despite the improved right upper lid position, she does not have a right supratarsal crease and theright upper lid skin is redundant and overlying her eyelashes Her right lower lid is still significantly retracted - about 6-7 mms caudad-displaced The lid is firmly adherent to her orbital rim It is clear that 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 and will need a spacer graft I have recommended she have a Morfin's visual field test in order to document her visual field obstruction I have recommended the following: Morfin visual field testing Bilateral pre-trichial browlift CPT 77112 Bilateral upper lid blepharoplasty with invagination to the levator to re-create the supratarsal crease CPT: 14235 Correction of right lower lid retraction with lysis of cicatrix and placement of palatal mucosal reading intervention teacher graft CPT: 57103, 33694 3.5 hours We discussed the techniques and risks involved with surgical intervention to correct her significant brow ptosis and dermatochalisis on the right. Risks of surgery were carefully discussed - these include bleeding, scarring, infection, healing problems, sensory and/or motor nerve injury, asymmetry,skin contour irregularity, prolonged erythema, persistent deformity, unsatisfactory outcome, need for further surgery, etc. She works from home and will be able to resume computer activities 2-3 days post-op Reta Guevara, am acting as scribe for Dr Pina. All work documented was performed by Dr Pina. documented in this encounter Miscellaneous Notes * Miscellaneous - John, Interior Design Professor - 11/02/2011 12:43 PM EST documented in this encounter Plan of Treatment Pending Results Name Type Priority Associated Diagnoses Date /Time GOLDMANN VISUAL FIELD - EXTENDED - OU- BOTH EYES Ophthalmology Routine Facial trauma 11/07/2011 11:16 AM EST documented as of this encounter Procedures Procedure Name Priority Date/Time Associated Diagnosis Comments REPAIR BROW PTOSIS, BILATERAL Routine 10/24/2011 11:43 AM EST documented in this encounter Visit Diagnoses Diagnosis Facial trauma- Primary Injury of face and neck documented in this encounter Care Teams Security Intelligence Analyst Relationship Specialty Start Date End Date Tish Malcolm, RAVINDER PCP - General 07/08/11 11/09/16 documented as of this encounter
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
--- OUTSIDE RECORDS SUMMARY | 2024-05-02 03:56 | XMS_ITS | Encounter Summary ---
Author Organization [facility] Address [facility] [place] [address] Care Team Providers Care Psychosocial Rehabilitation Counselor Name Role Phone Tish Malcolm APRN Primary Care Provider [phone]- [phone] Encounter Details Date Type Department Care Team (Late st Contact Info) Description 02/16/2012 10:03 AM EDT - 02/16/2012 2:01 PM EDT Surgery [place] [phone] Tor Pina MD [facility] [place] [address] REPAIR OF BROW PTOSIS, PJ (WRVU 6.82) Social History Tobacco Use Types Packs/Day Years [...] Sign Reading Time Taken Comments Blood Pressure 124/66 02/16/2012 3:42 PM EDT Pulse 67 02/16/2012 3:42 PM EDT Temperature 36.4 ??C (97.5 ??F) 02/16/2012 1:00 PM ED T Respiratory Rate 16 02/16/2012 3:42 PM EDT Oxygen Saturation 98% 02/16/2012 3:42 PM EDT Inhaled Oxygen Concentration - - Weight - - Height - - Body Mass Index - - documented in this encounter Discharge Instructions * Discharge Instructions* Joselyn Geller RN - 02/16/2012 2:34 PM EDT POST ANESTHESIA INSTRUCTIONS Go home, [...] away in 12-24 hours. * Patient Instructions* Papo To - 02/16/2012 1:44 PM EDT Keep head elevated at all times for the next few days Call [phone] with any issues -do not remove the eye patch until follow up -leave the eye area dry until followup, you may wash your hair and get the forehead incision wet in48 hrs -do not apply bacitracin to forehead incision -you may apply ophthalmic bacitracin to L lid twice daily documented in this encounter Medications at Time of Discharge Medication Sig Dispensed Refills Start Date End Date OXYcodone 5 mg capsule Take 1-2 capsules by mouth every 4 hours as needed for 10 days. 30 capsule 0 02/16/2012 02/23/2012 OXYcodone 5 mg capsule Take 1-2 capsules by mouth every 4 hours as needed for 10 days. 30 capsule 0 02/16/2012 02/23/2012 documented as of this encounter Progress Notes * Joselyn Geller RN - 02/16/2012 2:48 PM EDT 1455 to bedside. Pt eating saltines and drinking kemi angel. 1545 Pt resting, No complaints. Denies need to void. 1600 Pt oob w/o difficulty. + void in BR. PIV removed 1620 Reviewed d/c instructions with pt and pt . Pt d/c'd home via w/c with . Pt left with personal belongings. documented in this encounter H&P Notes * Papo To - 02/16/2012 9:49 AM EDT Pt presents for revision eyelid and brows No issues at present Meds, allergies, Pmhx per e-DH ROS negative Exam Heart RRR Lungs CTA A/P Plan for operative intervention today for revision of eyelid and brows documented in this encounter Miscellaneous Notes * Miscellaneous - Provider, Scanning - 02/18/2012 12:15 AM EDT * Miscellaneous - Provider, Scanning - 02/18/2012 12:11 AM EDT * OR Attestation - Tor Pina MD - 02/16/2012 3:48 PM EDT Attestation: Case Date: 02/16/2012 I was present and I participated during the entire procedure (does not need to include opening and closing). TOR PINA MD 02/16/2012 * Op Note - Papo To - 02/16/2012 1:28 PM EDT [place] Operative Note Patient Name: Christina Ramos : [id number] MR#: [id number] Case Date: 02/16/2012 Surgeon: Surgeon(s) and Role: * TOR PINA MD - Primary * PAPO TO MD - Resident-Surgeon Chucho Preoperative diagnosis: bilateral brow ptosis Postoperative diagnosis: bilateral brow ptosis Procedure(s): REPAIR OF BROW PTOSIS, PJ BLEPHAROPLASTY,UPPER EYELID, WITH EXCESSIVE SKIN, PJ CORRECTION OF LID RETRACTION TISSUE GRAFT, PARATENON, FAT, DERMIS (OTHER) MEDIAL CANTHOPEXY LATERAL CANTHOPEXY Anesthesia: General Estimated Blood Loss: 50 cc Drains: none Disposition: awakened from anesthesia, extubated and taken to the recovery room in a stable condition, having suffered no apparent untoward event. Condition: doing well without problems Procedure Description: Operative consent obtained in the preoperative holding area. Pt brought back to the OR and placed on the operating room table. A time was held in which the patient's name, identity, and planned procedure were confirmed and agreed upon by all present. Pt was prepped and draped in the routine sterilefashion. -began operation with local to pretricial area forehead -made pretricial incision in forehead 16 cm -dissected in a sub-q plane between muscle and fat -elevated to the orbital rim -elevated the forehead skin as much as possible several mm greater on the R due to pre-op asymmetry -we removed the excess skin and sutured with monocryl in deep dermis and 5-0 fast abs gut and dermflex for the skin -we then harvested a 2 x 1 cm palatal mucosa graft by placing local anesthesia into the palate, making the incisions in an ellipse to the R of the midline vertically and elevating mucosa from the palate -a adaptec was folded and cut to size and sutured into the defect with 4-0 chromic sutures -we then completed an upper lid bleph on both sides -on the R we excised a very small amount of lid placing the lid crease at 10 mm from the lid margin. We resected orbic, came through the orbital septum and identified the levator. The skin was closedby grasping the levator with each bite with 6-0 fast abs gut -the same was done on the L resecting more skin however but also placing the lid crease at 10 mm from the lid margin -we then released the medial canthus and continued the incision transconj along the inferior borderof the tarsal plate -we then freed up any attachments tethering the lid down -at this point we de-ep a small portion of the medial tarsal plate and sutured this to the periosteum of the medial canthal area -due to clothslining, we then did a lateral canthotomy and then a lateral canthoplasty suturing orbic from the lower lid to inner lateral orbital wall periosteum such that we had a good lower lid position -at this point, we did not need to use the mucosal graft and the lower lid was tight transversely and there was adequate conj in the posterior lamella -it should be noted that we freed up the lower lid kaushik the best of our ability going subperiosteally inferiorly and along the orbital rim but things were still tight No complications noted Dr. Pina present for the operation All instruments, needles, sponges accounted for at the beginning and end of the procedure Pt taken to the recovery in good condition * Brief Op Note - Papo To - 02/16/2012 1:28 PM EDT Brief Operative Note Patient Name: Christina Ramos : [id number] MR#: [id number] Case Date: 02/16/2012 Surgeon: Surgeon(s) and Role: * TOR PINA MD - Primary * PAPO TO MD - Resident-Surgeon Chucho Preoperative diagnosis: bilateral brow ptosis Postoperative diagnosis: bilateral brow ptosis Procedure(s): REPAIR OF BROW PTOSIS, PJ BLEPHAROPLASTY,UPPER EYELID, WITH EXCESSIVE SKIN, PJ CORRECTION OF LID RETRACTION TISSUE GRAFT, PARATENON, FAT, DERMIS (OTHER) MEDIAL CANTHOPEXY LATERAL CANTHOPEXY Anesthesia: General Complications: none Fluids: 1.5 L Estimated Blood Loss: 50 cc Drains: none Disposition: awakened from anesthesia, extubated and taken to the recovery room in a stable condition, having suffered no apparent untoward event. Condition: doing well without problems (Please see the Surgical Encounter Summary for any Implant and Specimen details pertinent to this patient.) * Miscellaneous - Provider, Scanning - 02/16/2012 9:01 AM EDT documented in this encounter Plan of Treatment Not on file documented as of this encounter Procedures Procedure Name Priority Date/Time Associated Diagnosis Comments BLEPHAROPLASTY UPPER, W/ EXCESS SKIN, PJ Routine 02/17/2012 6:43 AM EDT CORRECTION OF LID RETRACTION Routine 02/17/2012 6:43 AM EDT LATERAL CANTHOPEXY Routine 02/17/2012 6: 43 AM EDT MEDIAL CANTHOPEXY Routine 02/17/2012 6:4 3 AM EDT TISSUE GRAFT, PARATENON,FAT,DERMIS (OTHER) Routine 02/17/2012 6:43 AM EDT LATERAL CANTHOPEXY (WRVU 4.27) 02/16/2012 10:05 AM EDT bilateral brow ptosis MEDIAL CANTHOPEXY (WRVU 7.13) 02/16/2012 10:05 AM EDT bilateral brow ptosis TISSUE GRAFT, PARATENON, FAT, DERMIS (OTHER) (WRVU 5.79) 02/16/2012 10:05 AM EDT bilateral brow ptosis CORRECTION OF LID RETRACTION (WRVU 7.5) 02/16/2012 10:05 AM EDT bilateral brow ptosis BLEPHAROPLASTY,UPPER EYELID, WITH EXCESSIVE SKIN, PJ (WRVU 6.81) 02/16/2012 10:05 AM EDT bilateral brow ptosis REPAIR OF BROW PTOSIS, PJ (WRVU 6.82) 02/16/2012 10:05 AM EDT bilateral brow ptosis documented in this encounter Visit Diagnoses Not on filedocumented in this encounter Administered Medications Inactive Administered Medications - up to 3 most recent administrations Medication Order MAR Action Action Date Dose Rate Site BUpivacaine-epiNEPHrine 0.25 %-1:200,000 injection ONCE PRN, Starting on Thu02/16/12 at 1324, Until Thu02/16/12 at 1834, Intra-Operative (Intra-Procedure), Routine Given 02/16/2012 1:24 PM EDT 1 mg 19- Surgical Site ceFAZolin (ANCEF) 2g in dextrose 5% 100mL 2 g, Intravenous, 30 MIN PRE-OP, 1 dose, On Thu02/16/12 at 1015, Administer over 30 Minutes, Day of Surgery (Day of Procedure), Indication for (Active or Suspected): for Skin/Skin Structure Given 02/16/2012 10:30 AM EDT 2 g fentaNYL 50mcg/mL injection 25-50 mcg, Intravenous, EVERY 5 MIN PRN, Starting on Thu02/16/12 at 1350, Until Thu02/16/12 at 1834, Pain, for breakthrough pain, Hold for respiratory rate less than 10 per minute. Maximum dose: 250 mcg over one hour., PACU Recovery, Routine Given 02/16/2012 2:26 PM EDT 25 mcg HYDROmorphone (DILAUDID) injection 0.2-0.4 mg 0.2-0.4 mg, Intravenous, EVERY 5 MIN PRN, Starting on Thu02/16/12 at 1350, Until Thu02/16/12 at 1834, Pain, For moderate pain give: 0.2 mg every 5 minute prn For severe pain give: 0.4 mg every 5 minutes prn Maximum dose: 4 mg per hour Hold for respiratory rate less than 10 per minute., PACU Recovery, Routine Given 02/16/2012 2:02 PM EDT 0.4 mg OXYcodone (ROXICODONE) immediate release tablet 5-10 mg 5-10 mg, Oral, EVERY 4 HOURS PRN, Starting on Thu02/16/12 at 1345, Until Thu02/16/12 at 1834, Pain, Routine Given 02/16/2012 2:57 PM EDT 5 mg documented in this encounter Active and Recently Administered Medications Times are shown in EDT. Scheduled Medication Order 02/14/2012 02/15/2012 02/16/2012 ceFAZolin (ANCEF) 2g in dextrose 5% 100mL (COMPLETED) 2 g, Intravenous, 30 MIN PRE-OP, 1 dose, On Thu02/16/12 at 1015, Administer over 30 Minutes, Day of Surgery (Day of Procedure), Indication for (Active or Suspected): for Skin/Skin Structure 1015 (Due)1030 (Give n - Provider: Pranay Stiles CRNA) PRN Medication Order 02/14/2012 02/15/2012 02/16/2012 BUpivacaine-epiNEPHrine 0.25 %-1:200,000 injection (CANCELED) ONCE PRN, Starting on Thu02/16/12 at 1324, Until Thu02/16/12 at 1834, Intra-Operative (Intra-Procedure), Routine 1324 (Given - Provid er: Papo To - Comment: 28ml given) fentaNYL 50mcg/mL injection (CANCELED) 25-50 mcg, Intravenous, EVERY 5 MIN PRN, Starting on Thu02/16/12 at 1350, Until Thu02/16/12 at 1834, Pain, for breakthrough pain, Hold for respiratory rate less than 10 per minute. Maximum dose: 250 mcg over one hour., PACU Recovery, Routine 1426 (Given - Provid er: Joselyn Geller RN) HYDROmorphone (DILAUDID) injection 0.2-0.4 mg (CANCELED) 0.2-0.4 mg, Intravenous, EVERY 5 MIN PRN, Starting on Thu02/16/12 at 1350, Until Thu02/16/12 at 1834, Pain, For moderate pain give: 0.2 mg every 5 minute prn For severe pain give: 0.4 mg every 5 minutes prn Maximum dose: 4 mg per hour Hold for respiratory rate less than 10 per minute., PACU Recovery, Routine 1402 (Given - Provid er: Joselyn Geller RN) OXYcodone (ROXICODONE) immediate release tablet 5-10 mg (CANCELED) 5-10 mg, Oral, EVERY 4 HOURS PRN, Starting on Thu02/16/12 at 1345, Until Thu02/16/12 at 1834, Pain, Routine 1457 (Given - Provid er: Joselyn Geller RN) documented in this encounter Care Teams Psychosocial Rehabilitation Counselor Relationship Specialty Start Date End Date Tish Malcolm, SIGNAL TOWER OPERATOR PCP - General 07/08/11 11/09/16 documented as of this encounter
--- OUTSIDE RECORDS SUMMARY | 2024-05-02 03:56 | XMS_ITS | Encounter Summary ---
Author Organization [facility] Address [address] [place] [address] Care Team Providers Care Produce Buyer Name Role Phone Unavailable Primary Care Provider Unavailabl e Encounter Details Date Type Department Care Team (Late st Contact Info) Description 12/22/2007 Results Only [facility] - Map conversion [address] [place] [address] [place] [address] [place] [id number] Social History Tobacco Use Types Packs/Day Years Used Date Smoking Tobacco: Never Assessed Sex and Gender Information Value Date Recorded Sex Assigned at Not on file Gender Identity Not on file Sexual Orientation Not on file documented as of this encounter Plan of Treatment Not on file documented as of this encounter Procedures Procedure Name Priority Date/Time Associated Diagnosis Comments SURGICAL PATHOLOGY Routine 12/22/2007 0:00 EDT documented in this encounter Results * SURGICAL PATHOLOGY (12/22/2007 0:00 EDT) Pathology Report: SURGICAL PATHOLOGY REPORT Reports generated via electronic interface contain original data; however they are lacking the format of the original report. Caution should be taken when reading/interpreti ng unformatted reports. Name: ? CHRISTINA SHANE ? Accession #: ? [id number] ? : ? 1955 (Age: 52) ??F ? Collect Date: ? 12/22/2007 ? Location: ? [facility] ? Receive Date: ? 12/23/2007 ? Provider: SAW RIOS MD Copy to: SHANON ARIAS PRE SALES NETWORK ENGINEER ? Final Pathologic Diagnosis: A. ?Colon, splenic flexure, polyps, biopsies: 1. ?Tubular adenoma. 2. ? Hyperplastic polyp. B. ?Colon, descending, polyp, biopsy: 1. ?Hyperplastic polyp. Document reviewed and electronically signed by: Felix Scott [facility] Report ??Date: 12/27/2007 14:25 By the signature above, the attending physician certifies that he/she has personally conducted a gross and/or microscopic examination of the described specimens and rendered or confirmed the above diagnosis. Specimen(s) Received: A. ?Polyp at splenic flexure x 2 B. ? Polyp at descending colon Clinical History: ? CA screening Gross Description: ? Received in Hollande's fixative labelled Dupage and poly at splenic flexure are two navarro-pink polypoid portions of soft tissue averaging 0.3 x 0.2 x 0.2 cm. ??Submitted in toto as (A). Received in Hollande's fixative labelled Dupage and polyp descending colon are two navarro-pink polypoid portions of soft tissue averaging 0.2 x 0.2 x 0.1 cm. Submitted inn toto as (B). (Sejal Gutiérrez)/mpl End of Report [facility] 12/22/2007 12/23/2007 9:0 4 EDT Saw Rios MD PATHOLOGY ORDERABLES [facility] [address] [place] [address] documented in this encounter Visit Diagnoses Not on filedocumented in this encounter
--- OUTSIDE RECORDS SUMMARY | 2024-05-02 03:56 | XMS_ITS | Encounter Summary ---
Author Organization [facility] [place] [address] Care Team Providers Care Medical Imaging Specialist Name Role Phone Unknown Primary Care Provider Unavailabl e Encounter Details Date Type Department Care Team (Late st Contact Info) Description 07/02/2011 1:10 PM EDT - 07/02/2011 4:38 PM EDT [place] [phone] Tor Adamson MD [facility] [place] [address] [facility] (VU 5.45[facility] Social History Tobacco Use Types Packs/Day Years [...] Adamson MD - 07/10/2011 8:21 PM EDT [facility] [place] Patient Name: Christina Ramos : [id number] MR#: [id number] Case Date: 07/02/2011 Surgeon: Surgeon(s) and Role: [...] Right lower lid tranconjunctival incision performed with [employer] needletip cautery. Preseptal plane used to access [...] 07/02/2011 12:32 PM EDT facial [facility] Yes 011 12:32 PM EDT facial trauma documented in this encounter Visit Diagnoses Not on filedocumented in this encounter Administered Medications Inactive Administered Medications - up to 3 most recent administrations Medication Order MAR Action Action Date Dose Rate Site BUpivacaine-epiNEPHrine 0.25 %-1:200,000 injection ONCE PRN, Starting on Thu07/02/11 at 1307, Until Thu07/02/11 at 2150, Intra-Operative (Intra-Procedure), Routine Given 07/02/2011 1:07 PM EDT 3 mLs ceFAZolin (ANCEF) 2g in dextrose 5% 100mL 2 g, Intravenous, ONCE, 1 dose, On Thu07/02/11 at 1230, Administer over 30 Minutes, Day of Surgery (Day of Procedure) Given 07/02/2011 12:57 PM EDT 2 g fentaNYL 50mcg/mL multi-dose injection 25-50 mcg, Intravenous, [...] Procedure) 1230 (Due)1257 (Give n - Provider: Tor Adamson MD) PRN Medication Order 06/30/2011 07/01/2011 [...] RN) documented in this encounter Care Teams Medical Imaging Specialist Relationship Specialty Start Date End Date Unknown None PCP - General 05/12/11 07/07/11 documented as of this encounter
--- OUTSIDE RECORDS SUMMARY | 2024-05-02 03:56 | XMS_ITS | Encounter Summary ---
Author Organization [facility] Address [facility] [place] [address] Care Team Providers Care Clinical Account Liaison Name Role Phone Tish Malcolm APRN Primary Care Provider [phone]- [phone] Reason for Visit * Reason Comments Follow-up Encounter Details Date Type Department Care Team (Late st Contact Info) Description 06/18/2012 12:30 PM EDT Follow-[place] [address] Tor Pina MD [facility] [place] [address] Facial trauma (Primary Dx) Discharge Disposition: Home [...] on file documented as of this encounter Patient Instructions * Patient Instructions* Milly Cole CMA - 06/18/2012 12:57 PM EDT Relaxation Medication Instructions You have been given a prescription for a medication to help you relax prior to your surgery. Pleasehave this prescription filled. Bring the medication with you to your surgery appointment and [id number] minutes prior to the scheduled surgical time. Do not take this medication until after you have met with your doctor the day of surgery. On arrival, you will have time to see your surgeon, sign the surgical consent form, and then take the relaxation medication. A family member or friend is permitted to stay with you while you relax prior to surgery. If you have already signed the surgical consent form with the doctor, you do not need to arrive 30 minutes prior to the scheduled surgical time. In this case, you still need to take the medication 30minutes prior to the scheduled surgery time, but may do so before you arrive here. You must Have someone available to drive you, once you have this medication in your system. documented in this encounter Progress Notes * Milly Cole CMA - 06/18/2012 12:56 PM EDT Pre-Op Teaching for Surgery Surgery: Right lateral canthoplasty, upper lid levator and fat grafting to right lower lid Written and verbal pre-operative instructions given and reviewed with patient. Patient was advised to discontinue use of NSAIDS and aspirin products 14 days prior to surgery unless otherwise advised by patient's PCP/Central Office Associate for cardiac symptoms, to perform the pre-op scrub, and coordinate ride home following surgery. Discussed and answered all questions including post opcourse and activity limitations. Prescriptions: Valium and Vicodin patient instructed to bring with her and not to take until surgical consent is signed. Photos taken Patient was told to call the clinic for any questions or concerns prior to surgery. * Tor Pina MD - 06/18/2012 12:51 PM EDT Patient is here to further discuss right eyelid concerns s/p the following procedures: 02/16/12 REPAIR OF BROW PTOSIS, PJ BLEPHAROPLASTY,UPPER EYELID, WITH EXCESSIVE SKIN, PJ CORRECTION OF LID RETRACTION TISSUE GRAFT, PARATENON, FAT, DERMIS (OTHER) MEDIAL CANTHOPEXY LATERAL CANTHOPEXY Doing well. She reports she still has issues with her right eye watering and he lower right lid droop. Right Upper lid needs more work Right Lower lid retarction She has what appears to be a fat pocket in the inner corner of her upper lid that has been unmaskedsince her last surgery. I advised that I can excise this at her next stage of reconstruction. I recommended right upper lid levator advancement and right lateral canthoplasty and fat grafting to right lower lid. She understands and would like to proceed. She would prefer to no have general anesthesia so we will arrange this to be done in the minor procedure suite under local anesthesia. We will reserve 2 hours for the surgery. F/U: Schedule for procedure I, Randi Wen am acting as scribe for Dr Pina. All work documented was performed by Dr Pina. ???I performed the above scribed service and agree with the accuracy of the note?? TOR PINA MD documented in this encounter Miscellaneous Notes * Miscellaneous - John Electric Meter Setter - 07/06/2012 3:06 AM EDT documented in this encounter Plan of Treatment Not on file documented as of this encounter Visit Diagnoses Diagnosis Facial trauma- Primary Injury of face and neck documented in this encounter Care Teams Clinical Account Liaison Relationship Specialty Start Date End Date Tish Malcolm, SCRATCH FINISHER PCP - General 07/08/11 11/09/16 documented as of this encounter
--- OUTSIDE RECORDS SUMMARY | 2024-05-02 03:56 | XMS_ITS | Encounter Summary ---
Author Organization [facility] Address [address] [place] [address] Care Team Providers Care Acidizer Helper Name Role Phone Yana Vaughan MD Primary Care Provider [phone] Encounter Details Date Type Department Care Team (Late st Contact Info) Description 01/27/2023 Lab Requisition [facility] Pathology & Laboratory Medicine - [facility] [address], [place] [id number] Outr Resulting Lab, Provider Social History Tobacco Use Types Packs/Day Years Used Date Smoking Tobacco: Never Assessed Sex and Gender Information Value Date Recorded Sex Assigned at Not on file Gender Identity Not on file Sexual Orientation Not on file documented as of this encounter Plan of Treatment Not on file documented as of this encounter Procedures Procedure Name Priority Date/Time Associated Diagnosis Comments VARICELLA ZOSTER VIRUS MOLECULAR DETECTION, PCR Routine 01/26/2023 15:39 EDT HSV (HERPES SIMPLEX VIRUS) MOLECULAR DETECTION, PCR Routine 01/26/2023 15:39 EDT documented in this encounter Results * VARICELLA ZOSTER VIRUS MOLECULAR DETECTION, PCR (01/26/2023 15:39 EDT) VARICELLA ZOSTER VIRUS MOLECULAR DETECTION, PCR Negative Negative, Invalid 01/28/2023 13:24 EDT [facility] Swab ABDOMEN / Unknown 01/26/2023 15:39 EDT 01/27/2023 20:26 EDT Narrative [facility] - 01/28/2023 13:24 EDT This test was developed and its performance characteristics determined by [facility]. It has not been cleared or approved by the US Food and Drug Administration. FDA does not require this test to go through premarket FDA review. This test is used for clinical purposes. It should not be regarded as investigational or research. This laboratory is certified under the Clinical Laboratory Improvement Amendments (CLIA) as qualified to perform high complexity clinical laboratory testing. Provider Outr Resulting Lab MICROBIOLOGY - GENERAL ORDERABLES Performing Organization Address City/[facility]/ZIP Co de Phone Number [facility] [address] [place] [address] * HSV (HERPES SIMPLEX VIRUS) MOLECULAR DETECTION, PCR (01/26/2023 15:39 EDT) Herpes Simplex Virus Molecular Detection 1, PCR Negative Negative 01/28/2023 13:24 EDT [facility] Herpes Simplex Virus Molecular Detection 2, PCR Negative Negative 01/28/2023 13:24 EDT [facility] Swab ABDOMEN / Unknown 01/26/2023 15:39 EDT 01/27/2023 20:26 EDT Provider Outr Resulting Lab MICROBIOLOGY - GENERAL ORDERABLES Performing Organization Address City/[facility]/ZIP Co de Phone Number [facility] [address] [place] [address] documented in this encounter Visit Diagnoses Not on filedocumented in this encounter Care Teams Acidizer Helper Relationship Specialty Start Date End Date Yana Vaughan MD [address] [place] [phone] PCP - General 12/13/21 documented as of this encounter
--- OUTSIDE RECORDS SUMMARY | 2024-05-02 03:56 | XMS_ITS | Encounter Summary ---
[place] [address] Care Team Providers Care Pulverizer Tender Name Role Phone Tish Malcolm RAVINDER Primary Care Provider [phone]- [phone] Reason for Visit * Reason Comments Procedure here for ptosis gvf, droopy lids worse when tired Encounter Details Date Type Department Care Team (Latest Contact Info) Description 10/28/2011 9:30 AM EST Office [place] [phone] CLINIC, DR SNELL Dermatochalasis (Primary Dx) Discharge Disposition: Home Social History [...] as of this encounter Progress Notes * Pranay Zarate MD - 11/12/2011 3:54 PM EST gvf ou documented in this encounter Plan of Treatment Not on file documented as of this encounter Procedures Procedure Name Priority Date/Time Associated Diagnosis Comments GOLDMANN VISUAL FIELD - SINGLE ISOPTER - OU - BOTH EYES Routine 11/12/2011 3:53 PM EST Dermatochalasis documented in this encounter Results * GOLDMANN VISUAL FIELD - SINGLE ISOPTER - OU- BOTH EYES (11/12/2011 3:53 PM EST) Anatomical Region Laterality Modality Other Narrative 11/12/2011 3:53 PM EST Christina L Rachel [id number] Referring MD: ?? carolyn Reason for test ?? ptosis Results of Goldmann Visual Nuñez testing OD: ??Superior visual field at ??17 ??degrees without lid elevated. ? Superior visual field at ?? 44 ??degrees with lid elevated. ? OS: ??Superior visual field at ?? 1 ??degrees without lid elevated. ? Superior visual field at ?? 4 ??degrees with lid elevated. Read by: Pranay Zarate MD Procedure Note Pranay Zarate MD - 11/12/2011 Christina Booker Rachel [id number] Referring MD: carolyn Reason for test ptosis Results of Goldmann Visual Nuñez testing OD: Superior visual field at 17 degrees without lid elevated. Superior visual field at 44 degrees with lid elevated. OS: Superior visual field at 1 degrees without lid elevated. Superior visual field at 4 degrees with lid elevated. Read by: Pranay Zarate MD Tor Pina MD OPHTHALMOLOGY SER VICES ORDERABLES documented in this encounter Visit Diagnoses Diagnosis Dermatochalasis- Primary documented in this encounter Care Teams Pulverizer Tender Relationship Specialty Start Date End Date Tish Malcolm APRN PCP - General 07/08/11 11/09/16 documented as of this encounter
--- OUTSIDE RECORDS SUMMARY | 2024-05-02 03:56 | XMS_ITS | Encounter Summary ---
Author Organization [facility] Address [facility] [place] [address] [place] [address] Care Team Providers Care Market Development Director Name Role Phone Tish Malcolm RAVINDER Primary Care Provider [phone]- [phone] Encounter Details Date Type Department Care Team (Latest Contact Info) Description 02/06/2011 10:01 AM EDT - 02/06/2011 11:59 PM EDT Hospital [place] [address] CLINIC, Tor Blue MD [facility] [place] [address] Facial trauma Discharge Disposition: Home Social History Tobacco Use Types Packs/Day Years Used Date Smoking Tobacco: Never Assessed Sex and Gender Information Value Date Recorded Sex Assigned at Not on file Gender Identity Not on file Sexual Orientation Not on file documented as of this encounter Plan of Treatment Not on file documented as of this encounter Procedures Procedure Name Priority Date/Time Associated Diagnosis Comments CT FACE WO CONTRAST Routine 02/06/2011 1 0:13 AM EDT Injury of face and neck documented in this encounter Results * CT FACIAL WO CONTRAST (02/06/2011 10:13 AM EDT) Anatomical Region Laterality Modality Head Computed Tomogra phy 02/06/2011 10:1 3 AM EDT Impressions 02/07/2011 7:45 AM EDT IMPRESSION: Improved symmetry of the maxilla and orbit status post reconstruction or the orbital rim and elevation of the orbital floor. Narrative 02/07/2011 7:[address] OF THE FACE, 02/06/11: HISTORY: ??Evaluate bony asymmetry and positioning status post recent facial reconstruction. ?? TECHNIQUE: ??Helical imaging through the face was obtained without intravenous contrast. Coronal reformations and 3D surface models were created on a separate workstation. ?? COMPARISON: ??09/02/10. FINDINGS: ??There has been interval reconstructive surgery with interval reconfiguring of metallic hardware and osseous structures about the left orbit and maxilla. These changes, as well as placement of a graft along the orbital floor produce relative elevation of the orbital floor and improved symmetry of the maxilla and orbit. There is evidence of osseous healing and there is no area of abnormal lucency or bone destruction. ?? Procedure Note Chase Ramirez MD - 02/07/2011 CT OF THE FACE, 02/06/11: HISTORY: Evaluate bony asymmetry and positioning status post recentfacial reconstruction. TECHNIQUE: Helical imaging through the face was obtained withoutintravenous contrast. Coronal reformations and 3D surface models were created on [employer] (ABAM) workstation. COMPARISON: 09/02/10. FINDINGS: There has been interval reconstructive surgery with interval reconfiguring of metallic hardware and osseous structures about the leftorbit and maxilla. These changes, as well as placement of a graft along theorbital floor produce relative elevation of the orbital floor and improvedsymmetry of the maxilla and orbit. There is evidence of osseous healing and there isno area of abnormal lucency or bone destruction. IMPRESSION IMPRESSION: Improved symmetry of the maxilla and orbit status post reconstruction orthe orbital rim and elevation of the orbital floor. Tor Pina MD IMG CT ORDERABLES documented in this encounter Visit Diagnoses Diagnosis Facial trauma Injury of face and neck documented in this encounter Care Teams Market Development Director Relationship Specialty Start Date End Date Tish Malcolm APRN PCP - General 08/06/10 05/11/11 documented as of this encounter
--- OUTSIDE RECORDS SUMMARY | 2024-05-02 03:56 | XMS_ITS | Encounter Summary ---
Author Organization [facility] Address [address] [place] [address] Care Team Providers Care Agriscience Teacher Name Role Phone Yana Vaughan MD Primary Care Provider Encounter Details Date Type Department Care Team (Late st Contact Info) Description 10/20/[address] [facility] Pathology & Laboratory Medicine - [address] [id number] Outr Resulting Lab, Provider Social History Tobacco [...] RNA BY PCR Routine 10/20/2022 14:00 EST documented in this encounter Results * HEPATITIS C AB W REFLEX TO HCV RNA BY PCR (10/20/2022 14:00 EST) Hep C Antibody Negative Negative 10/22/2022 10:23 EST [facility] Blood VENOUS BLOOD / Unknown 10/20/2022 14:00 EST 10/21/2022 17:20 EST Provider Outr Resulting Lab CHEMISTRY & BLOOD GAS ORDERABLES [facility] [address] [place] [address] documented in this encounter Visit Diagnoses Not on filedocumented in this encounter Care Teams Agriscience Teacher Relationship Specialty Start Date End Date Yana Vaughan MD [address] [place] [phone] PCP - General 12/13/21 documented as of this encounter
--- OUTSIDE RECORDS SUMMARY | 2024-05-02 03:56 | XMS_ITS | Encounter Summary ---
Author Organization [facility] Address [facility] [place] [address] Care Team Providers Care Piping Design Specialist Name Role Phone Tish Malcolm APRN Primary Care Provider +1- [phone] Encounter Details Date Type Department Care Team (Latest Contact Info) Description 02/16/2012 8:33 AM EDT - 02/16/2012 4:20 PM EDT Hospital Encounter [place] [phone] Tor Pina MD [facility] [place] [address] Discharge Disposition: Home Social History Tobacco Use [...] times for the next few days Call [phone] with any issues -do not remove the [...] issues at present Meds, allergies, Pmhx per e- ROS negative Exam Heart RRR Lungs CTA [...] Papo To - 02/16/2012 1:28 PM EDT [facility] Operative Note Patient Name: Christina Ramos : [id number] MR#: [id number] Case Date: 02/16/2012 Surgeon: Surgeon(s) and Role: * TOR PINA MD - Primary * PAPO M VAN VLIET, MD - Resident-Surgeon Chucho Preoperative diagnosis: bilateral [...] were still tight No complications noted Dr. Pian present for the operation All instruments, needles, sponges accounted for at the beginning and end of the procedure Pt taken to the recovery in good condition * Brief Op Note - Papo To - 02/16/2012 1:28 PM EDT Brief Operative Note Patient Name: Christina Ramos : [id number] MR#: [id number] Case Date: 02/16/2012 Surgeon: Surgeon(s) and Role: [...] Action Date Dose Rate Site fentaNYL 50mcg/mL injection 25-50 mcg, Intravenous, EVERY [...] Oral, EVERY 4 HOURS PRN, Starting on 02/16/12 at 1345, Until 02/16/12 at 1834, Pain, Routine Given 02/16/2012 2:57 [...] PRN, Starting on Thu02/16/12 at 1350, Until 02/16/12 at 1834, Pain, for breakthrough pain, Hold for respiratory rate less than 10 per minute. Maximum dose: 250 mcg over one hour., PACU Recovery, Routine 1426 (Given - Provid er: Joselyn Geller RN) HYDROmorphone (DILAUDID) injection 0.2-0.4 mg (CANCELED) 0.2-0.4 mg, Intravenous, EVERY 5 MIN PRN, Starting on Thu02/16/12 at 1350, Until 02/16/12 at 1834, Pain, For moderate pain give: [...] RN) documented in this encounter Care Teams Piping Design Specialist Relationship Specialty Start Date End Date Tish Malcolm APRN PCP - General 07/08/11 11/09/16 documented as of this encounter
--- OUTSIDE RECORDS SUMMARY | 2024-05-02 03:56 | XMS_ITS | Encounter Summary ---
Author Organization [facility] [place] [address] Care Team Providers Care Vp Of Customer Experience Strategy Name Role Phone Malcolm Tishgrupo Alaniz APRN Primary Care Provider [phone]- [phone] Reason for Visit * Reason Comments Follow Up Surgery Facial trauma repair Encounter Details Date Type Department Care Team (Late st Contact Info) Description 07/08/2011 3:00 PM EDT Office [place] [address] Tor Pina MD [facility] [place] [address] Facial trauma (Primary Dx) Discharge Disposition: Home [...] - Inhaled Oxygen Concentration - - Weight - - Height 172.7 cm (5' 8) 07/08/2011 3:10 PM EDT Body Mass Index - - documented in this encounter Patient Instructions * Patient Instructions* Milly Cole CMA - 07/08/2011 3:24 PM EDT Welcome to [employer], your secure online access to your electronic medical record at [facility]. Using [employer] you will be able to send messages to your providers, view your test results, renew prescriptions, schedule appointments, and much more. Follow these instructions to enter your personal [employer] account for the first time: 1. Start your internet browser. Go to [email or web address] and click on the [email or web address] link. 2. Click SIGN UP NOW to go to the NEW MEMBER SIGN UP page. 3. Enter your [employer] Access Code exactly as it appears below. (You will not need this access code after you have completed the sign-up process.) ?? Your [employer] Access Code: [email or web address] ?? Expires: 08/22/11 03:24 PM ?? IMPORTANT: This Access Code will on the above mentioned date. If you do not sign up before this date, you will need to request a new Access Code number. 4. Enter your Date of (mm/dd/yyyy) and zip code click SUBMIT to go to the next page. 5. Create a [employer] identification (ID). This will be your [employer] login ID and cannot be changed, so [...] know when new information is available in [employer]. 9. Click SIGN UP to complete the process. You can now view your electronic medical record. If you have any questions about [employer] or your Access Code, please call for [place], for [place] or for [place]. If you need technical support, please e-mail [email or web address]. Remember, [employer]-H is NOT for urgent needs! Always dial 911 for medical emergencies. documented in this encounter Progress Notes * Tor Pina MD - 01/14/2013 1:19 PM EDT 1 week s/p: (Right MEDIAL and LATERAL CANTHOPLASTY) REMOVAL OF IMPLANT, DEEP, SKULL/FACIAL BONES BLEPHAROPTOSIS REPAIR, LEVATOR RESECTION OR ADVANCEMENT, EXTERNAL ORBITAL IMPLANT, INSERTION (TREATMENT OF ORBITAL FLOOR DEFECT) Doing well Pain minimal Right globe position is improved - elevated Right upper lid ptosis is improved but contour may not be high enough nasally Activity restrictions reviewed Routine bath/shower F/u in 3 weeks documented in this encounter Plan of Treatment Not on file documented as of this encounter Visit Diagnoses Diagnosis Facial trauma- Primary Injury of face and neck documented in this encounter Care Teams Vp Of Customer Experience Strategy Relationship Specialty Start Date End Date Tish Malcolm APRN PCP - General 07/08/11 11/09/16 documented as of this encounter
--- OUTSIDE RECORDS SUMMARY | 2024-05-02 03:56 | XMS_ITS | Encounter Summary ---
Author Organization [facility] Address [facility] [place] [address] Care Team Providers Care Bundle Tier And Labeler Name Role Phone Tish Malcolm APRN Primary Care Provider [phone]- [phone] Reason for Referral * Consultation (Routine) - Closed Specialty Diagnoses / Procedures Referred By [place] t Referred To Contact Ophthalmology Diagnoses Facial trauma Tor Pina MD [facility] [place] [address] Aleta Cruz [place] Referral ID Status Reason Start Date Expiration Date V isits Requested Visits Authorized [id number] Closed Consult, Test & Treat 03/26/2012 09/22/2012 1 1 Reason for Visit * Reason Comments Follow Up Surgery bilateral blephs Encounter Details Date Type Department Care Team (Late st Contact Info) Description 03/26/2012 10:45 AM EDT [place] [address] Tor Pina MD [facility] [place] [address] Facial trauma (Primary Dx) Discharge Disposition: Home [...] Sign Reading Time Taken Comments Blood Pressure 112/60 03/26/2012 10:47 AM EDT re ported Pulse - - Temperature - - Respiratory Rate - - Oxygen Saturation - - Inhaled Oxygen Concentration - - Weight 87.5 kg (193 lb) 03/26/2012 10:47 AM EDT Height 172.7 cm (5' 8) 03/26/2012 10:47 AM EDT Body Mass Index 29.35 03/26/2012 10:47 AM EDT documented in this encounter Patient Instructions * Patient Instructions* Tor Pina MD - 03/26/2012 11:05 AM EDT Follow up with Aleta Cruz for consideration of strabismus correction. Follow up with Dr. Pina following this appointment documented in this encounter Progress Notes * Tor Pina MD - 03/26/2012 11:01 AM EDT week s/p the following procedures: REPAIR OF BROW PTOSIS, PJ BLEPHAROPLASTY,UPPER EYELID, WITH EXCESSIVE SKIN, PJ CORRECTION OF LID RETRACTION TISSUE GRAFT, PARATENON, FAT, DERMIS (OTHER) MEDIAL CANTHOPEXY LATERAL CANTHOPEXY Doing well. She reports the tearing in her right eye is intermittent and is not usually an issue for her. Right lower lid is in better position Upper lid needs more work She has what appears to be a fat pocket in the inner corner of her upper lid that has been unmaskedsince her last surgery. I advised that I can excise this at her next stage of reconstruction. It is possible that her right globe has some esotropia. I recommended she follow up with OrthoptistBvicente Cruz for objective assessment. We discussed the possibility of further skin revision of her right lower lid and possible adjustment of the right levator medially. I would like to give her more time to heal and for her lid positionto settle prior to proceeding with further surgical intervention. She is happy to wait before undergoing further reconstruction. F/U: In coordination with Reta Medina, am acting as scribe for Dr Pina. All work documented was performed by Dr Pina. documented in this encounter Miscellaneous Notes * Miscellaneous - Nita Lopez - 04/08/2012 8:32 PM EDT documented in this encounter Plan of Treatment Scheduled Referrals Name Type Priority Associated Diagnoses Order Schedule REFERRAL TO OPHTHALMOLOGY Outpatient Referral Routine Facial trauma Ordered: 03/26/2012 documented as of this encounter Visit Diagnoses Diagnosis Facial trauma- Primary Injury of face and neck documented in this encounter Care Teams Bundle Tier And Labeler Relationship Specialty Start Date End Date Tish Malcolm APRN PCP - General 07/08/11 11/09/16 documented as of this encounter
--- OUTSIDE RECORDS SUMMARY | 2024-05-02 03:56 | XMS_ITS | Encounter Summary ---
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 Briseno. documented in this encounter Progress Notes * Aleta Blair CO - 02/07/2011 2:56 PM EDT Small angle strabismus without diplopia, with decreased visual acuity OD. Suggest Dr. Case Cyr evaluate vertical lid position. (He was not in clinic on day of Orthopticappointment) documented in this encounter Nursing Notes * 02/06/2011 11:00 AM EDT >> ALETA BLAIR, CERTIFIED OR ThuFebruary 07, 2011 2:58 PM Description:Patient presents with: Other - Orthoptic evaluation Location: {Right eye Duration: {06-13-91 Condition:{inproving Pain:{slight ache right eye Associated Symptoms: Some diplopia, very limited visual acuity. Pt states she is please with the orbital/facial repair procedures and improved appearance. documented in this encounter Plan of Treatment Not on file documented as of this encounter Visit Diagnoses Diagnosis Mechanical strabismus from other musculofascial disorders- Primary documented in this encounter Care Teams Kettle Loader Relationship Specialty Start Date End Date Tish Malcolm APRN PCP - General 08/06/10 05/11/11 documented as of this encounter
--- OUTSIDE RECORDS SUMMARY | 2024-05-02 03:56 | XMS_ITS | Clinical Summary ---
Author Organization [facility] Address [facility] [place] [address] Care Team Providers Care Cone Baker Machine Name Role Phone Unknown Primary Care Provider Unavailabl e Allergies No known active allergies Medications Medication Sig Dispensed Refills Start Date End Date Status diaZEPam (VALIUM) 10 mg tablet Take by mouth. Bring to hospital on day of surgery. To be taken AFTER signing consent form at hospital. 2 tablet 0 06/18/2012 Active hydroCODone-acetamin ophen (VICODIN) 5-500 mg per tablet Take 1 tablet by mouth every 6 hours as needed for Pain. 20 tablet 0 06/18/2012 Active Active Problems Problem Noted Date Diagnosed Date Facial trauma 04/04/2011 Deformity Overview (03/25/2011): Post traumatic - right side Immunizations Name Administration Dates Next Due Influenza Vaccine, Whole 06/14/2010 Social History Tobacco Use Types Packs/Day Years Used Date Smoking Tobacco: Never Alcohol Use Standard Drinks/Week Comments Not Asked 0 (1 standard drink = 0.6 oz pur e alcohol) Sex and Gender Information Value Date Recorded Sex Assigned at Not on file Gender Identity Not on file Sexual Orientation Not on file Last Filed Vital Signs Vital Sign Reading Time Taken Comments Blood Pressure 112/60 03/26/2012 10:47 AM EDT re ported Pulse 67 02/16/2012 3:42 PM EDT Temperature 36.4 ??C (97.5 ??F) 02/16/2012 1:00 PM ED T Respiratory Rate 16 02/16/2012 3:42 PM EDT Oxygen Saturation 98% 02/16/2012 3:42 PM EDT Inhaled Oxygen Concentration - - Weight 87.5 kg (193 lb) 03/26/2012 10:47 AM EDT Height 172.7 cm (5' 8) 03/26/2012 10:47 AM EDT Body Mass Index 29.35 03/26/2012 10:47 AM EDT Plan of Treatment Health Maintenance Due Date Last Done Comments CT Colonography 1954 Colonoscopy 1954 Colorectal Cancer Screening 1954 FIT DNA 1954 FIT 1954 Sigmoidoscopy (10 year) with FIT yearly 1954 Sigmoidoscopy 1954 Hepatitis C Screening 1972 Tdap adult 1973 Tetanus vaccine 1973 Breast Cancer Share Decision Needed 1994 Breast Cancer screening 1994 Zoster vaccine (1 of 2) 2004 Advance Directive 2009 Bone Density Scan 12/16/2019 Pneumoccocal Vaccine: 65+ (1 of 1 - PCV) 12/16/2019 Covid-19 Vaccine (1 - 2022-24 season) 2023 Influenza (Flu) vaccine (1 o f 1 - Influenza standard series) 05/15/2024 06/14/2010 Medical Devices Implanted Type Area Leak Hunter Device Identifier Shelf Expiration Date Model / Serial / Lot Sheet,Floor,O rbital,38x50x 1mm ([id number]) - [id number] Implanted:Qty : 1 on 07/02/2011 at [facility] IMPLANTS Right: [employer] - [id number] 03/02/2020 [id number] / / [id number] Description:[id number] Advance Directives * Full Code (Latest Code Status on File) Date Activated Date Inactivated Comments 02/16/2012 9:50 AM 02/16/2012 7:04 PM Care Teams Cone Baker Machine Relationship Specialty Start Date End Date Unknown None PCP - General 11/10/16
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
--- OUTSIDE RECORDS SUMMARY | 2024-05-02 03:56 | XMS_ITS | Referral Summary ---
Author Organization [facility] Address [address] [place] [address] Care Team Providers Care Plastic Outfitter Name Role Phone Yana Vaughan MD Primary Care Provider [phone] Social History Tobacco Use Types Packs/Day Years Used Date Smoking Tobacco: Never Assessed Sex and Gender Information Value Date Recorded Sex Assigned at Not on file Gender Identity Not on file Sexual Orientation Not on file Plan of Treatment Not on file Procedures Procedure Name Priority Date/Time Associated Diagnosis Comments HEPATITIS C AB W REFLEX TO HCV RNA BY PCR Routine 10/20/2022 14:00 EST from Last 3 Months or Most Recently Relevant to Health Maintenance Results * HEPATITIS C AB W REFLEX TO HCV RNA BY PCR (10/20/2022 14:00 EST) Hep C Antibody Negative Negative 10/22/2022 10:23 EST [facility] Blood VENOUS BLOOD / Unknown 10/20/2022 14:00 EST 10/21/2022 17:20 EST Provider Outr Resulting Lab CHEMISTRY & BLOOD GAS ORDERABLES [facility] [address] [place] [address] from Last 3 Months or Most Recently Relevant to Health Maintenance Care Teams Plastic Outfitter Relationship Specialty Start Date End Date Yana Vaughan MD [address] [address] PCP - General 12/13/21
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
--- OUTSIDE RECORDS SUMMARY | 2024-05-02 03:56 | XMS_ITS | Encounter Summary ---
Author Organization [facility] Address [address] [place] [address] Care Team Providers Care Professor Of Poultry Science Name Role Phone Unknown, Provider Primary Care Provider Yana Vaughan MD Primary Care Provider [phone] Encounter Details Date Type Department Care Team (Late st Contact Info) Description 11/01/2021 Lab Requisition [facility]ology & Laboratory Medicine - [address] [address] Alphonse Martinez [address] [place] [id number] Neoplasm of unspecified behavior of bone, soft tissue, and skin Social History Tobacco Use Types Packs/Day Years Used Date Smoking Tobacco: Never Assessed Sex and Gender Information Value Date Recorded Sex Assigned at Not on file Gender Identity Not on file Sexual Orientation Not on file documented as of this encounter Plan of Treatment Not on file documented as of this encounter Procedures Procedure Name Priority Date/Time Associated Diagnosis Comments SURGICAL PATHOLOGY Today 11/01/2021 15 :32 EST Neoplasm of unspecified behavior of bone, soft tissue, and skin documented in this encounter Results * SURGICAL PATHOLOGY (11/01/2021 15:32 EST) Note to Patient The following pathology results have been interpreted by your pathologist and may be available to you before your health provider has had the opportunity to review them. Please allow time for your provider to receive these results and explore management options, if applicable. 11/05/2021 9:57 EST [facility] Final Diagnosis A. SKIN OF THIGH, RIGHT ANTERIOR, SHAVE BIOPSY: - Seborrheic keratosis, inflamed. 11/05/2021 9:57 [facility] Attestation By the signature below, the attending physician certifies that they have 1) personally conducted a gross and/or microscopic examination of the described specimen(s), and/or personally interpreted the results of laboratory testing of the described specimen(s), and 2) personally rendered or confirmed the above diagnosis. 11/05/2021 9:57 [facility] at 0957 Clinical History Clinical diagnosis code: D49.2 11/05/2021 9:57 [facility] Gross Description A. Received in formalin labelled with proper patient identification (initials M, S) and R anterior thigh is a shave biopsy of navarro-white skin (1.2 x 0.7 x 0.1 cm). There is a central navarro focally brown papule with irregular borders that measures 1.0 x 0.5 cm. The margin is inked blue, the specimen is trisected and entirely submitted in A1. RICHARD PACHECO 11/04/2021 9:31 11/05/2021 9:57 [facility] Performing Lab [facility] 11/05/2021 9:57 [facility] Scanned Images 11/05/2021 9:57 [facility] Tissue TISSUE SPECIMEN FROM SKIN / Unknown 11/01/2021 15:32 EST 11/01/2021 23:28 EST Alphonse GLYNN PATHOLOGY ORDERABL ES [facility] [address] [place] [address] documented in this encounter Visit Diagnoses Diagnosis Neoplasm of unspecified behavior of bone, soft tissue, and skin documented in this encounter Care Teams Professor Of Poultry Science Relationship Specialty Start Date End Date Unknown, Provider, PCP - General 08/05/15 12/12/21 Yana Vaughan MD [address] [place] [phone] PCP - General 12/13/21 documented as of this encounter
--- OUTSIDE RECORDS SUMMARY | 2024-05-02 03:56 | XMS_ITS | Encounter Summary ---
[place] [address] Care Team Providers Care Rod Piler Name Role Phone Tish Malcolm APRN Primary Care Provider [phone]- [phone] Encounter Details Date Type Department Care Team (Late st Contact Info) Description 09/02/2010 11:00 AM EST Procedure visit [place] [address] Social History Tobacco Use Types Packs/Day Years Used Date Smoking Tobacco: Never Assessed Sex and Gender Information Value Date Recorded Sex Assigned at Not on file Gender Identity Not on file Sexual Orientation Not on file documented as of this encounter Plan of Treatment Not on file documented as of this encounter Visit Diagnoses Not on filedocumented in this encounter Care Teams Rod Piler Relationship Specialty Start Date End Date Tish Malcolm APRN PCP - General 08/06/10 05/11/11 documented as of this encounter
[2024-05-02 15:11] LABS: ALT 21 U/L (14-59); AST 21 U/L (15-37); Albumin 3.2 g/dL (3.4-5.0); Alkaline Phosphatase 96 U/L (46-116); Anion Gap 8.4 mmol/L (3-11); BUN 15 mg/dL (7-18); Bilirubin, Total 0.55 mg/dL (0.2-1.0); CO2 26.6 mmol/L (21.0-32.0); CREATININE 1.1 mg/dL (0.55-1.02); Calcium 9.1 mg/dL (8.5-10.1); Calculated LDL 170 mg/dL (<100); Chloride 105 mmol/L (98-107); Cholesterol 271 mg/dL (<200); Estimated GFR 54.39 (mL/min/1.73m2); Glucose 136 mg/dL (74-106); HDL Cholesterol 77 mg/dL (40-60); Potassium 3.8 mmol/L (3.5-5.1); Sodium 140 mmol/L (136-145); Total Protein 7.3 g/dL (6.4-8.2); Triglyceride 121 mg/dL (<150)
== END 2024-05-02 03:55 | disposition home or self-care (01) ==
LOC: LBO 03:54
PROVIDERS: PCP Family Medicine; Visit Provider Family Medicine
DX: Z13.220 Encounter for screening for lipoid disorders (principal); R60.0 Localized edema
CPT/HCPCS: 36415; 80053; 80061

== ENCOUNTER 2024-06-16 01:19 | Outpatient (CLI) | payer BC, SELFPAY ==
--- NOTE | 2024-06-16 | DI.DEXA_ITS ---
Exam(s) XR DEXA BONE DENSITY W/WO STEVIE EXAM: XR DEXA BONE DENSITY W/WO STEVIE CLINICAL HISTORY: Osteopenia, M85.88 TECHNIQUE: COMPARISON: CR XR DEXA BONE DENSITY W/WO STEVIE from 08/14/2020 FINDINGS: Lateral Spine Image: Unremarkable. No compression deformities identified. Left hip: Total T-Score: -0.8. This compares to -0.9 on the prior examination. Total Z-Score: 0.7 T- and Z-scores: No evidence of osteoporosis. Lumbar Spine: Total T-Score: -1.6. This compares to -1.8 on the prior examination. Total Z-Score: 0.5 T- and Z-scores: Findings are consistent with osteopenia. No evidence of osteoporosis. IMPRESSION: No evidence of osteoporosis.
--- NOTE | 2024-06-16 08:47 | DI.MAMMO_ITS ---
Exam(s) MAMMO SCREENING EXAM: MAMMO SCREENING CLINICAL HISTORY: Screening, Z12.31 TECHNIQUE: Mammograms were interpreted according to the usual protocol including computer analysis w [employer] CAD system, tomosynthesis and C-view imaging. COMPARISON: 2018 and 2021 FINDINGS: The breasts are composed of scattered fibroglandular densities, Breast Density category B. No suspicious masses or suspicious microcalcifications are seen. No skin thickening or abnormal axillary lymph nodes are seen. There has been no significant change from prior exams. IMPRESSION: BI-RADS Category 1, Negative mammogram Yearly screening mammography is recommended. Breast Density - Category B, scattered fibroglandular densities. A negative radiographic report should not delay biopsy if a dominant or clinically suspicious mass is present. Up to ten percent of cancers are not identified on mammography. A negative report may reinforce clinical impression. Adenosis and dense breasts may obscure an underlying neoplasm. False positive reports average 6 to 10%. Patient will receive a letter notifying them of these results.
== END 2024-06-16 01:39 ==
LOC: DI 01:19
PROVIDERS: PCP Family Medicine; Visit Provider Family Medicine
DX: Z12.31 Encounter for screening mammogram for malignant neoplasm of breast (principal); M85.88 Other specified disorders of bone density and structure, other site
CPT/HCPCS: 77063; 77067; 77080